=== PATIENT | female | born 1980 | race Hispanic/Latino ===

== ENCOUNTER 2018-04-16 13:44 | Inpatient (IN) | payer SELFPAY ==
[2018-04-16] MEDS ORDERED: ACETAMINOPHEN 500 MG TAB ONE (15:04)
[2018-04-16] MEDS ORDERED: NA CHLORIDE 0.9% 2,000 ML ONE (15:04)
[2018-04-16 15:28] LABS: Absolute Lymphocytes (CBC) 0.9 K/uL (0.7-4.9); Absolute Monocytes 0.8 K/uL (0.1-1.3); Basophils % 0.2 % (0-1.3); Hematocrit 37.4 % (36.0-45.0); Lymphocytes % 6.9 % (15.3-44.8); MPV 9.7 fL (7.6-11.3); Monocytes % 6.6 % (3.3-12.3); RBC Red Blood Cell Count 3.99 M/uL (3.86-4.86)
--- NOTE | 2018-04-16 15:29 | RAD REPORT ---
EXAM DESCRIPTION: CT - Stone Protocol - 04/16/2018 3:15 pm CLINICAL HISTORY: Right-sided abdominal pain, right-sided flank pain COMPARISON: None. TECHNIQUE: Axial 5 mm thick images were obtained without oral or IV contrast. The [id number] span s the entirety of the system including uppermost abdomen and lung bases. All CT scans are performed using dose optimization technique as appropriate and may include automated exposure control or mA/KV adjustment according to patient size. FINDINGS: No hydronephrosis identified. No obstructing or nonobstructing calculi seen. Very minimal fullness of the right pelvis and proximal ureter noted with mild wall thickening. Right kidney as a w hole is enlarged and edematous. There is stranding in the perinephric fat. No focal renal parenchymal process. Findings could reflect a recently passed stone. Pyelonephritis is a primary consideration. No bladder calculi seen. No bladder wall thickening or mass. No left-sided kidney or collecting syste m abnormality. Uterus and ovaries show no suspicious findings. No significant adrenal finding. Imaged portions of the liver, spleen and pancreas show no suspicious findings on non-contrast imaging . No gallbladder or biliary tree abnormality identified. No suspicious bowel findings. No appendicitis findings. No hernia, mass or bulky lymphadenopathy noted. No free air, free fluid or inflammatory stranding. No significant bony abnormality. IMPRESSION: Enlarged, edematous right kidney. There is prominence of the [place] of the right pelvis a nd proximal right ureter without hydronephrosis. No obstructing or nonobstructing calculus. Pyelonephritis would be a primary consideration. A recently passed kidney stone would be possible. No urinary bladder abnormality. Isodense masses and pyelonephritis are not excluded on stone protocol technique.
[2018-04-16] MEDS ORDERED: CEFTRIAXONE/SWI 1gm 1 GM/10 ML SYR ONE (15:30)
--- NOTE | 2018-04-16 15:44 | ER ---
Nurse's Notes [facility] Name: Lashae Payton Age: 38 yrs Sex: Female : 1980 Arrival Date: 04/16/2018 Time: 13:48 Bed 27 Private MD: Diagnosis: Sepsis due to other Gram-negative organisms;Acute tubulo-interstitial nephritis Presentation: 04/16 14:07 Presenting complaint: Patient states: fever and chills that began Monday. Pt reports aa5 lower back pain radiating to lower abdomen that began Monday. Pt reports nausea. Pt reports last normal BM was Monday, pt states "I've been having really small bowel movements since Monday". Transition of care: patient was not received from another setting of care. Onset of symptoms was March 2018. Risk Assessment: Do you want to hurt yourself or someone else? Patient reports no desire to harm self or others. Care prior to arrival: None. 14:07 Method Of Arrival: Ambulatory aa5 14:07 Acuity: ANAM 3 aa5 15:28 Initial Sepsis Screen: Does the patient meet any 2 criteria? Temp <36.0*C (96.8*F)) or la1 > 38.3*C (100.9*F). HR > 90 bpm. Yes Does the patient have a suspected source of infection? No. Patient's initial sepsis screen is negative. 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 - Social history:: Smoking status: Patient/guardian denies using tobacco. - Ebola Screening: : No symptoms or risks identified at this time. Screenin:28 Abuse screen: Denies threats or abuse. Nutritional screening: No deficits noted. la1 Tuberculosis screening: No symptoms or risk factors identified. Fall Risk None identified. Assessment: 15:27 General: Appears in no apparent distress. Behavior is calm, cooperative. Pain: la1 Complains of pain in back Pain radiates to abdomen. Neuro: Level of Consciousness is awake, alert, obeys commands, Oriented to person, place, time, situation. Cardiovascular: Heart tones S1 S2 present Capillary refill < 3 seconds Patient's skin is warm and dry. Respiratory: Airway is patent Respiratory effort is even, unlabored, Respiratory pattern is regular, symmetrical, Breath sounds are clear bilaterally. GI: No signs and/or symptoms were reported involving the gastrointestinal system. : No signs and/or symptoms were reported regarding the genitourinary system. Vital Signs: 14:10 BP 98 / 66; Pulse 113; Resp 18 S; Temp 101.0(O); Pulse Ox 100% on R/A; Pain 5/10; aa5 14:21 Weight 70.26 kg (M); la1 15:26 BP 106 / 76; Pulse 109; Resp 18; Pulse Ox 98% on R/A; la1 16:18 BP 96 / 65; Pulse 98; Resp 18; Temp 98.7(O); Pulse Ox 100% on R/A; la1 ED Course: 13:48 Patient arrived in ED. rg4 14:09 Triage completed. aa5 14:09 Arm band placed on. aa5 14:22 Johann Henry MD is Attending Physician. gs 14:32 Trevor Finley, CHRISTEN is Primary Nurse. la1 14:[address] via wheelchair. vm2 15:15 CT Stone Protocol In Process Unspecified. EDMS 15:27 No provider procedures requiring assistance completed. Inserted saline lock: 18 gauge la1 in right antecubital area, using aseptic technique. Blood collected. 15:28 Call light in reach. Side rails up X 1. la1 15:43 Kenneth Hayes DO is Hospitalizing Provider. gs 16:41 Patient admitted, IV remains in place. la1 Administered Medications: 15:25 Drug: Rocephin - (cefTRIAXone) 1 grams Route: IVPB; Infused Over: 30 mins; Site: right la1 antecubital; 15:37 Follow up: IV Status: Completed infusion la1 15:26 Drug: Acetaminophen 1000 mg Route: PO; la1 16:19 Follow up: Response: No adverse reaction; Temperature is decreased la1 15:26 Drug: NS 0.9% (30 ml/kg) 30 ml/kg Route: IV; Rate: bolus; Site: right antecubital; la1 16:19 Follow up: IV Status: Completed infusion la1 Outcome: 15:43 Decision to Hospitalize by Provider. gs 16:33 Patient left the ED. 16:41 Admitted to Med/surg accompanied by nurse, via wheelchair, room 431, with chart. la1 16:41 Condition: stable 16:41 Instructed on the need for admit. Signatures: Dispatcher [employer] EDRosy Rendon RN RN aa5 Asuncion Dawn RN RN ss Attema, Lee, RN RN la1 Garcia, Rubi Janny Miles [facility] Johann Henry MD MD
--- NOTE | 2018-04-16 15:45 | EDPHYS ---
Physician Documentation [facility] Name: Lashae Payton Age: 38 yrs Sex: Female : 1980 Arrival Date: 04/16/2018 Time: 13:48 Bed 27 Private MD: ED Physician Johann Henry HPI: 04/16 15:41 This 38 yrs old Female presents to ER via Ambulatory with complaints of Fever. gs 15:41 The patient complains of pain in the right low back. The pain radiates to the abdomen. gs Onset: The symptoms/episode began/occurred acutely, 3 day(s) ago. Modifying factors: The symptoms are alleviated by nothing. the symptoms are aggravated by nothing. Associated signs and symptoms: Pertinent positives: dysuria, fever, vomiting. Severity of pain: At its worst the pain was moderate in the emergency department the pain is unchanged. The patient has not experienced similar symptoms in the past. The patient has not recently seen a physician. 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 - Social history:: Smoking status: Patient/guardian denies using tobacco. - Ebola Screening: : No symptoms or risks identified at this time. ROS: 15:41 All other systems are negative. gs Exam: 15:41 Head/Face: Normocephalic, atraumatic. Eyes: Pupils equal round and reactive to light, gs extra-ocular motions intact. Lids and lashes normal. Conjunctiva and sclera are non-icteric and not injected. Cornea within normal limits. Periorbital areas with no swelling, redness, or edema. ENT: Nares patent. No nasal discharge, no septal abnormalities noted. Tympanic membranes are normal and external auditory canals are clear. Oropharynx with no redness, swelling, or masses, exudates, or evidence of obstruction, uvula midline. Mucous membranes moist. Neck: Trachea midline, no thyromegaly or masses palpated, and no cervical lymphadenopathy. Supple, full range of motion without nuchal rigidity, or vertebral point tenderness. No Meningismus. Chest/axilla: Normal chest wall appearance and motion. Nontender with no deformity. No lesions are appreciated. 15:41 Respiratory: Lungs have equal breath sounds bilaterally, clear to auscultation and percussion. No rales, rhonchi or wheezes noted. No increased work of breathing, no retractions or nasal flaring. Abdomen/GI: Soft, non-tender, with normal bowel sounds. No distension or tympany. No guarding or rebound. No evidence of tenderness throughout. Skin: Warm, dry with normal turgor. Normal color with no rashes, no lesions, and no evidence of cellulitis. MS/ Extremity: Pulses equal, no cyanosis. Neurovascular intact. Full, normal range of motion. Neuro: Awake and alert, GCS 15, oriented to person, place, time, and situation. Cranial nerves II-XII grossly intact. Motor strength 5/5 in all extremities. Sensory grossly intact. Cerebellar exam normal. Normal gait. 15:41 Constitutional: The patient appears alert, awake, uncomfortable. 15:41 Cardiovascular: Rate: tachycardic, Rhythm: regular, Pulses: no pulse deficits are appreciated. 15:41 Back: CVA tenderness, that is moderate, is noted on the right. Vital Signs: 14:10 BP 98 / 66; Pulse 113; Resp 18 S; Temp 101.0(O); Pulse Ox 100% on R/A; Pain 5/10; aa5 14:21 Weight 70.26 kg (M); la1 15:26 BP 106 / 76; Pulse 109; Resp 18; Pulse Ox 98% on R/A; la1 16:18 BP 96 / 65; Pulse 98; Resp 18; Temp 98.7(O); Pulse Ox 100% on R/A; la1 MDM: 14:51 Patient medically screened. gs 15:41 Differential diagnosis: nephrolithiasis, pyelonephritis, UTI, sepsis. Data reviewed: vital signs, nurses notes. Response to treatment: the patient's symptoms have markedly improved after treatment, and as a result, I will admit patient. 04/16 14:51 Order name: Basic Metabolic Panel 04/16 14:51 Order name: Blood Culture Adult (2) 04/16 14:51 Order name: CBC with Diff 04/16 14:51 Order name: Lactate 04/16 14:51 Order name: LFT's 04/16 14:51 Order name: Lipase 04/16 14:51 Order name: Procalcitonin 04/16 14:51 Order name: Urine Microscopic Only 04/16 14:51 Order name: CT Stone Protocol; Complete Time: 15:31 04/16 14:52 Order name: Basic Metabolic Panel EDME 04/16 16:00 Order name: Urine Dipstick--Ancillary (enter results) 04/16 14:51 Order name: Urine Test (obtain specimen); Complete Time: 15:43 04/16 14:51 Order name: Accucheck; Complete Time: 15:25 04/16 14:51 Order name: Cardiac monitoring; Complete Time: 15:26 04/16 14:51 Order name: IV Saline Lock - Large Bore; Complete Time: 15:26 04/16 14:51 Order name: Labs collected and sent; Complete Time: 15:26 04/16 14:51 Order name: O2 Per Protocol; Complete Time: 15:26 04/16 14:51 Order name: O2 Sat Monitoring; Complete Time: 15:26 04/16 14:51 Order name: Urine Dipstick-Ancillary (obtain specimen); Complete Time: 15:26 gs Administered Medications: 15:25 Drug: Rocephin - (cefTRIAXone) 1 grams Route: IVPB; Infused Over: 30 mins; Site: right la1 antecubital; 15:37 Follow up: IV Status: Completed infusion la1 15:26 Drug: Acetaminophen 1000 mg Route: PO; la1 16:19 Follow up: Response: No adverse reaction; Temperature is decreased la1 15:26 Drug: NS 0.9% (30 ml/kg) 30 ml/kg Route: IV; Rate: bolus; Site: right antecubital; la1 16:19 Follow up: IV Status: Completed infusion la1 Disposition: 04/16/18 15:43 Hospitalization ordered by Kenneth Hayes for Inpatient Admission. Preliminary diagnosis are Sepsis due to other Gram-negative organisms, Acute tubulo-interstitial nephritis. - Bed requested for Telemetry/MedSurg (Inpatient). - Status is Inpatient Admission. ss - Condition is Stable. - Problem is new. - Symptoms have improved. UTI on Admission? Yes Critical care time excluding procedures: 15:41 Critical care time: Bedside Care: 10 minutes, Consultation: 10 minutes, Family gs Intervention: 10 minutes. Total time: 30 minutes Signatures: Dispatcher [employer] EDRosy Rendon, RN RN aa5 Asuncion Dawn RN RN ss Trevor Finley RN RN la1 Stephanie Bai RN RN df Johann Henry MD MD gs Corrections: (The following items were deleted from the chart) 16:06 15:43 Hospitalization Ordered by Kenneth Hayes DO for Inpatient Admission. Preliminary df diagnosis is Sepsis due to other Gram-negative organisms; Acute tubulo-interstitial nephritis. Bed requested for Telemetry/MedSurg (Inpatient). Status is Inpatient Admission. Condition is Stable. Problem is new. Symptoms have improved. UTI on Admission? Yes. 16:33 16:06 04/16/2018 15:43 Hospitalization Ordered by Kenneth Hayes DO for Inpatient ss Admission. Preliminary diagnosis is Sepsis due to other Gram-negative organisms; Acute tubulo-interstitial nephritis. Bed requested for Telemetry/MedSurg (Inpatient). Status is Inpatient Admission. Condition is Stable. Problem is new. Symptoms have improved. UTI on Admission? Yes. df
[2018-04-16 15:48] LABS: Albumin 2.8 g/dL (3.4-5.0); Bilirubin Direct 0.2 mg/dL (0-0.2); Bilirubin Total 0.4 mg/dL (0.2-1.0); Potassium 3.3 mmol/L (3.5-5.1)
--- NOTE | 2018-04-16 16:05 | P.HP ---
Certification for Inpatient Patient admitted to: Inpatient With expected LOS: >2 Midnights Patient will require the following post-hospital care: None Practitioner: I am a practitioner with admitting privileges, knowledge of patient current condition, hospital course, and medical plan of care. Services: Services provided to patient in accordance with Admission requirements found in Title 42 Section 412.3 of the Code of Federal Regulations Patient History Date of Service: 04/16/18 Primary Care Provider: none Reason for admission: Right flank pain, fever and chills History of Present Illness: 38 year old female presented emergency room with right flank pain, fever, chills. Patient reports fever, chills, right flank pain since last Monday. Symptoms also reported included headaches. She has been taking Tylenol and naproxen to help with the pain. She reported at her urine was slightly abnormal. Pain to the right flank worsened. She came to the ER for further evaluation. In the ER patient evaluated. Patient with fever. White count elevated at 12.7 , hemoglobin 12.9. Platelet count of 220. Sodium 129, potassium 3.3, BUN of 10 , creatinine 0.9 with a GFR 70. Glucose 132. CT of the abdomen showed a large edematous right kidney. No hydronephrosis noted. This was suspicious for pyelonephritis with possible recently passed stone. Patient given IV fluids and started on antibiotic therapy in the emergency room. Patient admitted for further treatment. When I saw the patient ER, pain still present but improved. Patient has no prior medical problems. She reports no prior urinary recurrent infections. Home medications list reviewed: Yes - Past Medical/Surgical History Diabetic: No Past Medical History: Patient denies medical history -: Tubal ligation - Family History Family History: Reviewed- Non-Contributory - Social History Smoking Status: Never smoker Alcohol use: No CD- Drugs: No Caffeine use: No Place of Residence: Home Review of Systems General: Fever, Chills, Weakness, Malaise, As per HPI Eyes: Unremarkable ENT: Unremarkable Respiratory: Unremarkable Cardiovascular: Unremarkable Gastrointestinal: Abdominal Pain, As per HPI Genitourinary: Dysuria, As per HPI Musculoskeletal: Unremarkable Integumentary: Unremarkable Neurological: Weakness, As per HPI Lymphatics: Unremarkable Physical Examination - Physical Exam General: Alert, In no apparent distress, Oriented x3, Cooperative, Other ( Patient appears ill appearing. Fever noted. Patient warm to touch) HEENT: Atraumatic, Normocephalic, PERRLA, Mucous membr. moist/pink Neck: Supple, No Thyromegaly Respiratory: Clear to auscultation bilaterally, Normal air movement Cardiovascular: Abnormal pulses (Sinus tachycardia) Gastrointestinal: Normal bowel sounds, Soft and benign, Non-distended, No masses , No rebound, No guarding, Tenderness (Pain to the right flank) Musculoskeletal: No erythema, No tenderness, No warmth Integumentary: No erythema, No warmth, No cyanosis, Other (Patient warm to touch ) Neurological: Normal speech, Normal strength at 5/5 x4 extr, Normal tone, Normal affect Other Physical/Emotional Findings: Fever 101 - Studies Laboratory Data (last 24 hrs) 04/16/18 15:10: WBC 12.7 H, Hgb 12.9, Hct 37.4, Plt Count 220 04/16/18 15:10: Sodium 129 L, Potassium 3.3 L, BUN 10, Creatinine 0.90, Glucose 132 H, Total Bilirubin 0.4, AST 40 H, ALT 37, Alkaline Phosphatase 116, Lipase 103 Assessment and Plan - Plan Impression: Fever, right flank pain and chills secondary to right pyelonephritis with possibly recently passed stone Hyponatremia with hypokalemia likely related to dehydration Plan: Fever, right flank pain and chills secondary to right pyelonephritis with possibly recently passed stone: Patient will be admitted for treatment. Blood cultures and urine cultures obtained. Will send lab for GC chlamydia. Patient started on IV Rocephin. Will continue with aggressive IV fluid hydration. Will provide medication for pain. Will start DVT prophylaxis. Encourage incentive spirometer. Likely home once without fever for at least 24 hr and urine culture obtained. Anticipate discharge in the next 2-4 days. I will turn the service over to Dr. Valdes tomorrow. I will go over the plan of care with her. Hyponatremia with hypokalemia likely related to dehydration: Will start aggressive IV fluid. Will monitor and replace electrolytes. Discharge Plan: Home Plan to discharge in: Greater than 2 days - Advance Directives Does patient have a Living Will: No Does patient have a Durable POA for Healthcare: No - Code Status/Comfort Care Code Status Assessed: Yes (Patient full code.) Time Spent Managing Pts Care (In Minutes): 55
[2018-04-16 16:14] LABS: Urine Bacteria >50 /HPF (<20); Urine Culture Reflex Order REFLEXED
[2018-04-16 16:15] LABS: Urine Blood 2+ (NEG); Urine Glucose NEGATIVE (NEG); Urine Protein 1+ (NEG); Urine Specific Gravity <1.005 (1.005-1.030); Urine pH 6.5 (5.0-7.0)
[2018-04-16] MEDS ORDERED: TRAMADOL HCL 50 MG TAB PO PRN (16:41)
[2018-04-16] MEDS ORDERED: IBUPROFEN 100 MG/5 ML UCUP PO PRN (16:41)
[2018-04-16 16:47] LABS: Blood Morphology Comment NOT SEEN (NOT SEEN); Platelet Estimate ADEQ; Urine White Blood Cell Casts OK
[2018-04-16] MEDS: HYDROCODONE/APAP 7.5/325 MG TAB PO PRN (17:21)
[2018-04-16] MEDS: ENOXAPARIN 40 MG/0.4 ML SQ SCH (17:22)
[2018-04-16] MEDS: NA CHLORIDE 0.9% 1,000 ML IV SCH (17:23)
[2018-04-16] MEDS ORDERED: POTASSIUM CL SA 10 MEQ TAB PO ONE ×2 (18:00→23:57)
[2018-04-16 18:19] LABS: Urine Appearance CLEAR; Urine Bilirubin NEGATIVE (NEG); Urine Blood 2+ (NEG); Urine Color YELLOW; Urine Glucose NEGATIVE (NEG); Urine Protein TRACE (NEG); Urine Specific Gravity <=1.005 (1.005-1.030); Urine pH 6.5 (5.0-7.0)
[2018-04-16 18:25] LABS: Urine Microscopic Reflex ORDER UMIC
[2018-04-16] MEDS ORDERED: INFLUENZA VACCINE (for 3y+) 0.5 ML DOSE IMVAC ONE (20:00)
[2018-04-16] MEDS: FAMOTIDINE 20 MG TAB PO SCH (20:10)
[2018-04-16 20:46] LABS: Urine Bacteria 20-50 /HPF (<20); Urine Culture Reflex Order REFLEXED
[2018-04-16] MEDS: MORPHINE 2 MG/ML SYR IV PRN (23:29)
[2018-04-16] MEDS: ACETAMINOPHEN 500 MG TAB PO PRN (23:36)
[2018-04-17] MEDS: NA CHLORIDE 0.9% 1,000 ML IV SCH ×4 (00:32→21:52)
[2018-04-17] MEDS: ONDANSETRON 4 MG/2 ML VIAL IV PRN ×2 (00:38→12:29)
[2018-04-17] MEDS: HYDROCODONE/APAP 7.5/325 MG TAB PO PRN ×2 (05:03→13:18)
[2018-04-17 05:41] LABS: Absolute Lymphocytes (CBC) 1.2 K/uL (0.7-4.9); Absolute Monocytes 0.9 K/uL (0.1-1.3); Absolute Neutrophil 10.5 K/uL (1.8-8.0); Basophils % 0.3 % (0-1.3); Hematocrit 33.1 % (36.0-45.0); Lymphocytes % 9.8 % (15.3-44.8); MPV 9.4 fL (7.6-11.3); Monocytes % 7.3 % (3.3-12.3); RBC Red Blood Cell Count 3.52 M/uL (3.86-4.86)
[2018-04-17 05:54] LABS: BUN Blood Urea Nitrogen 7 mg/dL (7-18); Bicarbonate 25 mmol/L (21-32); Glucose Level 100 mg/dL (74-106); Magnesium 2.4 mg/dL (1.8-2.4); Potassium 3.8 mmol/L (3.5-5.1); Sodium Level 138 mmol/L (136-145)
[2018-04-17] MEDS ORDERED: POTASSIUM CL SA 10 MEQ TAB PO ONE (08:22)
[2018-04-17] MEDS: ACETAMINOPHEN 500 MG TAB PO PRN ×3 (08:32→18:41)
[2018-04-17] MEDS: ENOXAPARIN 40 MG/0.4 ML SQ SCH (08:33)
[2018-04-17] MEDS: FAMOTIDINE 20 MG TAB PO SCH ×2 (08:34→20:08)
[2018-04-17] MEDS ORDERED: CEFTRIAXONE/SWI 1gm 1 GM/10 ML SYR IVP SCH (09:00)
[2018-04-17] MEDS: CEFEPIME/SWI 2gm 2 GM/20 ML SYR IV SCH ×2 (10:32→16:51)
--- NOTE | 2018-04-17 17:36 | P.PN ---
Subjective Date of Service: 04/17/18 Primary Care Provider: none Chief Complaint: Right flank pain, fever and chills Review of Systems 10-point ROS is otherwise unremarkable Physical Examination - Vital Signs Temperature: 100.9 F Blood Pressure: 104/62 Pulse: 98 Respirations: 18 Pulse Ox (%): 96 - Physical Exam General: Alert, In no apparent distress HEENT: Atraumatic, PERRLA, EOMI Neck: Supple, JVD not distended Respiratory: Clear to auscultation bilaterally, Normal air movement Cardiovascular: Regular rate/rhythm, Normal S1 S2 Gastrointestinal: Normal bowel sounds, Tenderness Musculoskeletal: No tenderness Integumentary: No rashes Neurological: Normal speech, Normal tone, Normal affect Lymphatics: No axilla or inguinal lymphadenopathy Other Physical/Emotional Findings: Fever 101 - Studies Medications List Reviewed: Yes Assessment And Plan - Current Problems (Diagnosis) (1) Sepsis Current Visit: Yes Status: Acute Plan: Most likely secondary to right-sided pyelonephritis. -urine culture and blood cultures are positive for Gram negative rods at this time -was switched to IV cefepime at this time -continue monitor closely. -hemodynamically stable at this time Qualifiers: Sepsis type: sepsis due to unspecified organism Qualified Code(s): A41.9 - Sepsis, unspecified organism (2) Pyelonephritis Current Visit: Yes Status: Acute Plan: see#1 (3) Hyponatremia Onset Date: 04/17/18 Current Visit: Yes Status: Resolved - Plan Pending clinical improvement at this time Discharge Plan: Home Plan to discharge in: 48 Hours - Code Status/Comfort Care Code Status Assessed: Yes Critical Care: No
[2018-04-17] MEDS: MORPHINE 2 MG/ML SYR IV PRN (23:52)
[2018-04-18] MEDS: CEFEPIME/SWI 2gm 2 GM/20 ML SYR IV SCH ×2 (00:28→10:04)
[2018-04-18] MEDS: NA CHLORIDE 0.9% 1,000 ML IV SCH ×4 (00:29→16:32)
[2018-04-18] MEDS: ACETAMINOPHEN 500 MG TAB PO PRN ×2 (00:35→07:40)
[2018-04-18 04:36] LABS: Absolute Lymphocytes (CBC) 1.4 K/uL (0.7-4.9); Absolute Monocytes 0.6 K/uL (0.1-1.3); Basophils % 0.2 % (0-1.3); Lymphocytes % 17.6 % (15.3-44.8); MPV 8.8 fL (7.6-11.3); RBC Red Blood Cell Count 3.27 M/uL (3.86-4.86)
[2018-04-18 04:55] LABS: BUN Blood Urea Nitrogen 6 mg/dL (7-18); Bicarbonate 25 mmol/L (21-32); Glucose Level 88 mg/dL (74-106); Magnesium 2.5 mg/dL (1.8-2.4); Potassium 3.9 mmol/L (3.5-5.1); Sodium Level 136 mmol/L (136-145)
[2018-04-18] MEDS ORDERED: POTASSIUM CL SA 10 MEQ TAB PO ONE (06:00)
[2018-04-18] MEDS: ENOXAPARIN 40 MG/0.4 ML SQ SCH (10:03)
[2018-04-18] MEDS: FAMOTIDINE 20 MG TAB PO SCH ×2 (10:06→21:00)
[2018-04-18] MEDS: ONDANSETRON 4 MG/2 ML VIAL IV PRN ×2 (10:06→22:14)
--- NOTE | 2018-04-18 11:34 | RAD REPORT ---
EXAM DESCRIPTION: RAD - Abdomen 1 View (KUB) - 04/18/2018 11:24 am CLINICAL HISTORY: Abdominal pain COMPARISON: CT study April 16 FINDINGS: Bowel gas pattern is non-specific. No obstruction, free air or pneumatosis. No suspicious calcifications. Hyperdensities superimposed on the right sacral ala are believed to be within bowel. No abnormal stool content in the colon. No significant bony findings IMPRESSION: Negative KUB examination for acute or suspicious finding.
[2018-04-18] MEDS: HYDROCODONE/APAP 7.5/325 MG TAB PO PRN ×2 (13:46→19:02)
[2018-04-18] MEDS: Levofloxacin500mg IV 500 MG/100 ML BAG IV SCH (13:47)
--- NOTE | 2018-04-18 14:13 | P.PN ---
Subjective Date of Service: 04/18/18 Primary Care Provider: none Chief Complaint: Right flank pain, fever and chills Subjective: Tolerating diet, Ambulating, Improving, Doing well Review of Systems 10-point ROS is otherwise unremarkable Physical Examination - Vital Signs Temperature: 97.7 F Blood Pressure: 102/63 Pulse: 85 Respirations: 18 Pulse Ox (%): 98 - Physical Exam General: Alert, In no apparent distress HEENT: Atraumatic, PERRLA, EOMI Neck: Supple, JVD not distended Respiratory: Clear to auscultation bilaterally, Normal air movement Cardiovascular: Regular rate/rhythm, Normal S1 S2 Gastrointestinal: Normal bowel sounds, No tenderness Musculoskeletal: No tenderness Integumentary: No rashes Neurological: Normal speech, Normal tone, Normal affect Lymphatics: No axilla or inguinal lymphadenopathy Other Physical/Emotional Findings: Fever 101 - Studies Microbiology Data (last 24 hrs): 04/16/18 15:10 Clean Catch Urine Soper Count - Final BETWEEN 10,000 & 100,000 CFU/ML 04/16/18 15:10 Clean Catch Urine - Final Escherichia Coli Medications List Reviewed: Yes Assessment And Plan - Current Problems (Diagnosis) (1) Sepsis Current Visit: Yes Status: Acute Plan: Most likely secondary to right-sided pyelonephritis. -urine culture + for ecoli -Blood culture pending -was switched to IV cefepime at this time -continue monitor closely. -hemodynamically stable at this time Qualifiers: Sepsis type: sepsis due to unspecified organism Qualified Code(s): A41.9 - Sepsis, unspecified organism (2) Pyelonephritis Current Visit: Yes Status: Acute Plan: see#1 (3) Hyponatremia Onset Date: 04/17/18 Current Visit: Yes Status: Resolved - Plan Pending clinical improvement at this time Discharge Plan: Home Plan to discharge in: 48 Hours - Code Status/Comfort Care Code Status Assessed: Yes Critical Care: No
--- NOTE | 2018-04-18 15:55 | CON ---
Date of Consultation: 04/18/2018 Reason For Consultation: Nephrolithiasis; UTI, complicated; history of renal disease. History Of Present Illness: All the information has obtained with the help of shrimper. This is a 38-year-old female without any significant past medical history. No hypertension. No kidney disea se. According to her, she has never been on dialysis. The patient came to the hospital, complaining from flank pain radiating to the groin with nausea and vomiting. Primary workup showed leukocytosis , WBC 12.7 and severe UTI and fever. For that reason, we have been consulted. Abdominal CT shows py elonephritis without any hydronephrosis. No kidney stone, but suspecting of passing one. Past Medical History: Negative. Past Surgical History: Tubal ligation. Social History: Denies smoking. Denies drinking. Denies drug abuse. Lives with family. Family History: Positive for hypertension. Medications: Home medications, none. Current medications include cefepime, ibuprofen, morphine, Zof ran, and IV fluid. Review of Systems: Head and Neck: No red eye. No ear pain. GI: Has nausea and vomiting. : No polyuria. Has dysuria. Has frequency. 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 Respiratory: No shortness of breath. Cardiovascular: No chest pain. Endocrine: No polydipsia. Skin: No rash. Neuro: No neuropathy. Musculoskeletal: Has flank pain. Physical Examination: Vital Signs: Blood pressure 111/61, pulse of 91. Afebrile. Chest: Clear to auscultation. Heart: S1, S2. Regular. Abdomen: Soft, nontender. Extremities: No edema. Laboratory Data: WBC 8, H and H 10.8/31, platelet 201. Sodium 136, potassium 3.9, bicarb 25, BUN 6, creatinine 0.6, calcium 7.4, magnesium 2.5. Current Medications: The patient on its as above. Assessment And Plan: 1.Urinary tract infection secondary to Escherichia coli, sensitive to Levaquin. We will switch the patient to Levaquin to facilitate when she discharge. 2.Kidney stone, passing. We will get KUB. I have reinforced with the patient if she has any kidney disease before or being on dialysis, the patient denied. We reassured the patient. We will follow up. 3.Hypokalemia. I will supplement. Thank you, Dr. Valdes for allowing us to participate in the care of your patient. KAVYA Voice ID: [id number] Report ID: [id number]
[2018-04-19] MEDS: NA CHLORIDE 0.9% 1,000 ML IV SCH ×4 (00:17→22:24)
[2018-04-19] MEDS: MORPHINE 2 MG/ML SYR IV PRN (00:17)
[2018-04-19 04:07] LABS: Absolute Lymphocytes (CBC) 1.7 K/uL (0.7-4.9); Absolute Monocytes 0.9 K/uL (0.1-1.3); Absolute Neutrophil 6.3 K/uL (1.8-8.0); Basophils % 0.3 % (0-1.3); Eosinophils % 0.1 % (0-4.4); Hematocrit 32.6 % (36.0-45.0); Lymphocytes % 19.4 % (15.3-44.8); MPV 9.2 fL (7.6-11.3); Monocytes % 10.5 % (3.3-12.3); RBC Red Blood Cell Count 3.48 M/uL (3.86-4.86)
[2018-04-19 04:31] LABS: Albumin 2.2 g/dL (3.4-5.0); BUN Blood Urea Nitrogen 5 mg/dL (7-18); Bicarbonate 25 mmol/L (21-32); Glucose Level 91 mg/dL (74-106); Magnesium 2.2 mg/dL (1.8-2.4); Phosphorus 1.8 mg/dL (2.5-4.9); Potassium 4.4 mmol/L (3.5-5.1); Sodium Level 137 mmol/L (136-145)
[2018-04-19] MEDS: ACETAMINOPHEN 500 MG TAB PO PRN ×3 (05:14→22:24)
[2018-04-19] MEDS: HYDROCODONE/APAP 7.5/325 MG TAB PO PRN (06:28)
--- NOTE | 2018-04-19 10:00 | P.PN ---
Subjective Date of Service: 04/19/18 Primary Care Provider: none Chief Complaint: Right flank pain, fever and chills Subjective: Improving E.coli pylonephritis pansensitive BP borderline T 100.3 today will cont levaquin and consider adding gentamicin or ceftriaxone if still spiking fever Physical Examination - Vital Signs Temperature: 98 F Blood Pressure: 96/55 Pulse: 76 Respirations: 16 Pulse Ox (%): 97 - Physical Exam General: In no apparent distress, Oriented x3 HEENT: Atraumatic Neck: Supple, Without JVD or thyroid abnormality Respiratory: Clear to auscultation bilaterally, Normal air movement Cardiovascular: No edema, Regular rate/rhythm, Normal S1 S2 Gastrointestinal: Normal bowel sounds, Soft and benign Musculoskeletal: Other (Rt sided back tenderness ) Other Physical/Emotional Findings: Fever 101 - Studies Microbiology Data (last 24 hrs): 04/16/18 15:27 Blood - Blood Aerobic Blood Culture - Final Escherichia Coli 04/16/18 15:27 Blood - Blood Gram Stain - Final 04/16/18 15:27 Blood - Blood Anaerobic Blood Culture - Final Escherichia Coli 04/16/18 15:27 Blood - Blood Gram Stain - Final 04/16/18 15:10 Blood - Blood Aerobic Blood Culture - Final Escherichia Coli 04/16/18 15:10 Blood - Blood Gram Stain - Final 04/16/18 15:10 Blood - Blood Anaerobic Blood Culture - Final Escherichia Coli 04/16/18 15:10 Blood - Blood Gram Stain - Final 04/16/18 15:10 Clean Catch Urine [place] Count - Final BETWEEN 10,000 & 100,000 CFU/ML 04/16/18 15:10 Clean Catch Urine - Final Escherichia Coli Medications List Reviewed: Yes Assessment And Plan - Current Problems (Diagnosis) (1) Pyelonephritis Current Visit: Yes Status: Acute - Plan Rt pylonephritis Abd CT with perinephric starnding Bcx and Ucx: E.coli pansensitive Cont IVF cont levaquin, will consider adding gentamicin or ceftriaxone if cont to spike fever Hypokalemia resolved Hypocalcemia corrected ca WNL hypoalbumenienmia Encourage po intak e
[2018-04-19] MEDS: ENOXAPARIN 40 MG/0.4 ML SQ SCH (10:19)
[2018-04-19] MEDS: FAMOTIDINE 20 MG TAB PO SCH ×2 (10:19→22:24)
[2018-04-19] MEDS: ONDANSETRON 4 MG/2 ML VIAL IV PRN (10:28)
[2018-04-19] MEDS: Levofloxacin500mg IV 500 MG/100 ML BAG IV SCH (13:13)
--- NOTE | 2018-04-19 16:45 | P.PN ---
Subjective Date of Service: 04/19/18 Primary Care Provider: none Chief Complaint: Right flank pain, fever and chills Subjective: Tolerating diet, Ambulating, Improving, Working w/ PT, Doing well Review of Systems 10-point ROS is otherwise unremarkable Physical Examination - Vital Signs Temperature: 97.6 F Blood Pressure: 103/57 Pulse: 81 Respirations: 18 Pulse Ox (%): 98 - Physical Exam General: Alert, In no apparent distress HEENT: Atraumatic, PERRLA, EOMI Neck: Supple, JVD not distended Respiratory: Clear to auscultation bilaterally, Normal air movement Cardiovascular: Regular rate/rhythm, Normal S1 S2 Gastrointestinal: Normal bowel sounds, No tenderness Musculoskeletal: No tenderness Integumentary: No rashes Neurological: Normal speech, Normal tone, Normal affect Lymphatics: No axilla or inguinal lymphadenopathy Other Physical/Emotional Findings: Fever 101 - Studies Microbiology Data (last 24 hrs): 04/16/18 15:27 Blood - Blood Aerobic Blood Culture - Final Escherichia Coli 04/16/18 15:27 Blood - Blood Gram Stain - Final 04/16/18 15:27 Blood - Blood Anaerobic Blood Culture - Final Escherichia Coli 04/16/18 15:27 Blood - Blood Gram Stain - Final 04/16/18 15:10 Blood - Blood Aerobic Blood Culture - Final Escherichia Coli 04/16/18 15:10 Blood - Blood Gram Stain - Final 04/16/18 15:10 Blood - Blood Anaerobic Blood Culture - Final Escherichia Coli 04/16/18 15:10 Blood - Blood Gram Stain - Final Medications List Reviewed: Yes Assessment And Plan - Current Problems (Diagnosis) (1) Sepsis Current Visit: Yes Status: Acute Plan: Most likely secondary to right-sided pyelonephritis. -urine culture + for ecoli -Blood culture positive for E. coli -was switched to p.o. Levaquin at this time -continue monitor closely. -hemodynamically stable at this time -awaiting patient to remain afebrile for 24 hr for discharge home Qualifiers: Sepsis type: sepsis due to unspecified organism Qualified Code(s): A41.9 - Sepsis, unspecified organism (2) Pyelonephritis Current Visit: Yes Status: Acute Plan: see#1 (3) Hyponatremia Onset Date: 04/17/18 Current Visit: Yes Status: Resolved - Plan Pending clinical improvement at this time Discharge Plan: Home Plan to discharge in: 24 Hours - Code Status/Comfort Care Code Status Assessed: Yes Critical Care: No
[2018-04-20] MEDS: NA CHLORIDE 0.9% 1,000 ML IV SCH ×2 (00:41→08:41)
[2018-04-20 06:19] LABS: Absolute Monocytes 1.1 K/uL (0.1-1.3); Absolute Neutrophil 5.3 K/uL (1.8-8.0); Basophils % 0.3 % (0-1.3); Eosinophils % 0.6 % (0-4.4); Hematocrit 30.7 % (36.0-45.0); Lymphocytes % 23.4 % (15.3-44.8); MPV 8.4 fL (7.6-11.3); Monocytes % 12.9 % (3.3-12.3); RBC Red Blood Cell Count 3.29 M/uL (3.86-4.86)
[2018-04-20 06:47] LABS: Albumin 2.1 g/dL (3.4-5.0); BUN Blood Urea Nitrogen 4 mg/dL (7-18); Bicarbonate 24 mmol/L (21-32); Glucose Level 91 mg/dL (74-106); Magnesium 2.6 mg/dL (1.8-2.4); Phosphorus 2.4 mg/dL (2.5-4.9); Potassium 3.9 mmol/L (3.5-5.1); Sodium Level 141 mmol/L (136-145)
[2018-04-20 07:32] LABS: C.trachomatis RNA,TMA Not Detected (Not Detected)
[2018-04-20 07:33] LABS: Blood Morphology Comment NOT SEEN (NOT SEEN); Platelet Estimate ADEQ; Urine White Blood Cell Casts OK
[2018-04-20] MEDS ORDERED: levoFLOXacin 500 MG TAB PO SCH (09:00)
--- NOTE | 2018-04-20 10:21 | P.PN ---
Subjective Date of Service: 04/20/18 Primary Care Provider: none Chief Complaint: Right flank pain, fever and chills improving Rt back tenderness resolved Afebrile E.coli pylonephritis pansensitive Dc IVF , BP borderline at her base Physical Examination - Vital Signs Temperature: 99.3 F Blood Pressure: 90/55 Pulse: 75 Respirations: 18 Pulse Ox (%): 99 - Physical Exam General: In no apparent distress, Oriented x3 HEENT: Atraumatic Neck: Supple, Without JVD or thyroid abnormality Respiratory: Clear to auscultation bilaterally Cardiovascular: No edema, Regular rate/rhythm, Normal S1 S2 Other Physical/Emotional Findings: Fever 101 - Studies Microbiology Data (last 24 hrs): 04/16/18 15:27 Blood - Blood Aerobic Blood Culture - Final Escherichia Coli 04/16/18 15:27 Blood - Blood Gram Stain - Final 04/16/18 15:27 Blood - Blood Anaerobic Blood Culture - Final Escherichia Coli 04/16/18 15:27 Blood - Blood Gram Stain - Final 04/16/18 15:10 Blood - Blood Aerobic Blood Culture - Final Escherichia Coli 04/16/18 15:10 Blood - Blood Gram Stain - Final 04/16/18 15:10 Blood - Blood Anaerobic Blood Culture - Final Escherichia Coli 04/16/18 15:10 Blood - Blood Gram Stain - Final Medications List Reviewed: Yes Assessment And Plan - Current Problems (Diagnosis) (1) Pyelonephritis Current Visit: Yes Status: Acute - Plan Rt pylonephritis Abd CT with perinephric starnding Bcx and Ucx: E.coli pansensitive dc IVF Levaquin po cleared for discharge if BP is ok off IVF Hypokalemia resolved Hypocalcemia corrected ca WNL hypoalbumenienmia Encourage po intake
[2018-04-20] MEDS: FAMOTIDINE 20 MG TAB PO SCH (10:47)
[2018-04-20] MEDS: ENOXAPARIN 40 MG/0.4 ML SQ SCH (10:48)
--- NOTE | 2018-04-20 16:52 | P.DS ---
Admission Date: 04/16/18 Discharge Date: 04/20/18 Primary Care Provider: none Disposition: ROUTINE DISCHARGE Discharge Condition: GOOD Reason for Admission: Right flank pain, fever and chills - Problems (1) Sepsis Status: Acute Qualifiers: Sepsis type: sepsis due to unspecified organism Qualified Code(s): A41.9 - Sepsis, unspecified organism (2) Pyelonephritis Status: Acute (3) Hyponatremia Onset Date: 04/17/18 Status: Resolved Brief History of Present Illness: 38 year old female presented emergency room with right flank pain, fever, chills. Patient reports fever, chills, right flank pain since last Monday. Symptoms also reported included headaches. She has been taking Tylenol and naproxen to help with the pain. She reported at her urine was slightly abnormal. Pain to the right flank worsened. She came to the ER for further evaluation. In the ER patient evaluated. Patient with fever. White count elevated at 12.7 , hemoglobin 12.9. Platelet count of 220. Sodium 129, potassium 3.3, BUN of 10 , creatinine 0.9 with a GFR 70. Glucose 132. CT of the abdomen showed a large edematous right kidney. No hydronephrosis noted. This was suspicious for pyelonephritis with possible recently passed stone. Patient given IV fluids and started on antibiotic therapy in the emergency room. Patient admitted for further treatment. When I saw the patient ER, pain still present but improved. Patient has no prior medical problems. She reports no prior urinary recurrent infections. Hospital Course: Overall during the hospital stay patient remained stable Patient was initially admitted to the hospital for right-sided pyelonephritis and bacteremia. Patient had CVA tenderness on the right side. Patient was started on IV antibiotics here in the hospital. Patient was initially placed on vanc and Zosyn. Patient's blood culture and urine culture was positive for E. coli which was pansensitive. Patient then was switched over to Levaquin. Patient had marked improvement in her symptoms and thus was discharged home under stable condition. Patient was also having hyponatremia which was treated with IV fluids here in the hospital. Patient had no complications during this stay. Patient was asked to follow up with primary care provider in about 1-2 days post discharge. Vital Signs/Physical Exam: Temp Pulse Resp BP Pulse Ox 97.8 F 65 18 107/65 98 04/20/18 12:00 04/20/18 12:00 04/20/18 12:00 04/20/18 12:00 04/20/18 12:00 General: Alert, In no apparent distress HEENT: Atraumatic, PERRLA, EOMI Neck: Supple, JVD not distended Respiratory: Clear to auscultation bilaterally, Normal air movement Cardiovascular: Regular rate/rhythm, Normal S1 S2 Gastrointestinal: Normal bowel sounds, No tenderness Musculoskeletal: No tenderness Integumentary: No rashes Neurological: Normal speech, Normal tone, Normal affect Lymphatics: No axilla or inguinal lymphadenopathy Other Physical/Emotional Findings: Fever 101 Laboratory Data at Discharge: WBC 8.4 K/uL (4.3-10.9) 04/20/18 05:56 Hgb 10.6 g/dL (12.0-15.0) L 04/20/18 05:56 Hct 30.7 % (36.0-45.0) L 04/20/18 05:56 Plt Count 302 K/uL (152-406) D 04/20/18 05:56 Sodium 141 mmol/L (136-145) 04/20/18 05:56 Potassium 3.9 mmol/L (3.5-5.1) 04/20/18 05:56 BUN 4 mg/dL (7-18) L 04/20/18 05:56 Creatinine 0.40 mg/dL (0.55-1.3) L 04/20/18 05:56 Glucose 91 mg/dL (74-106) 04/20/18 05:56 Phosphorus 2.4 mg/dL (2.5-4.9) L 04/20/18 05:56 Magnesium 2.6 mg/dL (1.8-2.4) H 04/20/18 05:56 Total Bilirubin 0.4 mg/dL (0.2-1.0) 04/16/18 15:10 AST 40 U/L (15-37) H 04/16/18 15:10 ALT 37 U/L (12-78) 04/16/18 15:10 Alkaline Phosphatase 116 U/L (45-117) 04/16/18 15:10 Lipase 103 U/L (73-393) 04/16/18 15:10 Home Medications: levoFLOXacin [Levaquin*] 500 mg PO DAILY #14 tab 04/20/18 New Medications: levoFLOXacin [Levaquin*] 500 mg PO DAILY #14 tab Patient Discharge Instructions: Please F.u with PCP in 1 to 2 week post discharge. new medication. Levaquin 500mg daily Diet: Regular Activity: Ad parul
== END 2018-04-20 14:13 | disposition home or self-care (01) | DRG 872 ==
LOC: ER 13:44 → ERHOLD 15:53 → 4TH 16:28
PROVIDERS: ADMIT Family Medicine; ATTEND Family Medicine
DX: A41.51 Sepsis due to Escherichia coli [E. coli] (principal); N10 Acute pyelonephritis; E87.1 Hypo-osmolality and hyponatremia; R65.20 Severe sepsis without septic shock; E87.6 Hypokalemia; E86.0 Dehydration; N20.0 Calculus of kidney; E88.09 Other disorders of plasma-protein metabolism, not elsewhere classified
CPT/HCPCS: 36415; 74018; 74176; 76377; 80048; 80069; 80076; 81003; 81015; 82962; 83605; 83690; 83735; 84132; 84145; 85025; 87040; 87077; 87086; 87088; 87186; 87205; 87490; 87590; 96365; 96375; 99285; J0692; J0696; J1650; J2270; J2405; J7030

== ENCOUNTER 2022-04-02 00:26 | Emergency (ER) | payer SELFPAY ==
--- OUTSIDE RECORDS SUMMARY | 2022-04-02 00:29 | XMS REPORT | Continuity of Care Document ---
:1980 Author Organization [facility] t Address [address] [place] [address] [place] [address] Care Team Providers Name Role Phone Unavailable Unavailable Unavailable Problems This patient has no known problems. Allergies, Adverse Reactions, Alerts This patient has no known allergies or adverse reactions. Medications This patient has no known medications. Procedures This patient has no known procedures. Results This patient has no known results.
[2022-04-02] MEDS ORDERED: LIDOCAINE VISCOUS 2% SOLN 15 ML UDC ONE (00:39)
--- NOTE | 2022-04-02 00:57 | EDPHYS ---
Physician Documentation [facility] Name: Lashae Payton Age: 41 yrs Sex: Female : 1980 Arrival Date: 04/02/2022 Time: 00:27 Bed 10 Private MD: ED Physician Thomas Faust HPI: 04/02 00:57 This 41 yrs old Female presents to ER via Unassigned with complaints of ms3 Foreign Body In Ear. 00:57 The patient presents with a foreign body sensation, presumably from an insect. The ms3 complaints affect the left ear. Onset: The symptoms/episode began/occurred just prior to arrival. Modifying factors: The symptoms are alleviated by nothing, the symptoms are aggravated by nothing. Associated signs and symptoms: The patient has no apparent associated signs or symptoms. Severity of symptoms: At their worst the symptoms were severe in the emergency department the symptoms are unchanged. Historical: - Allergies: 01:04 No Known Allergies; tw5 ROS: 00:57 Constitutional: Negative for fever, and chills. Eyes: Negative for injury, pain, ms3 redness, and discharge. 00:57 Cardiovascular: Negative for chest pain, and palpitations. Respiratory: Negative for shortness of breath, cough, wheezing, and pleuritic chest pain, Abdomen/GI: Negative for abdominal pain, nausea, vomiting, diarrhea, and constipation, MS/Extremity: Negative for injury and deformity, Skin: Negative for injury, rash, and discoloration. 00:57 ENT: Positive for foreign body sensation. 00:57 All other systems are negative. Exam: 00:57 Constitutional: This is a well developed, well nourished patient who is awake, alert, ms3 and in no acute distress. Head/Face: Normocephalic, atraumatic. 00:57 Chest/axilla: Normal chest wall appearance and motion. Nontender with no deformity. Cardiovascular: Regular rate and rhythm with a normal S1 and S2. No gallops, murmurs, or rubs. Normal PMI, no JVD. No pulse deficits. Respiratory: Lungs have equal breath sounds bilaterally, clear to auscultation and percussion. No rales, rhonchi or wheezes noted. No increased work of breathing, no retractions or nasal flaring. Abdomen/GI: Soft, non-tender, with normal bowel sounds. No distension or tympany. No guarding or rebound. No evidence of tenderness throughout. Skin: Warm, dry with normal turgor. Normal color with no rashes, no lesions, and no evidence of cellulitis. MS/ Extremity: Pulses equal, no cyanosis. Neurovascular intact. Full, normal range of motion. 00:57 ENT: Ear canal(s): foreign body, an insect, in the left external ear canal. MDM: 00:47 Patient medically screened. ms3 00:57 Counseling: I had a detailed discussion with the patient and/or guardian regarding: the ms3 historical points, exam findings, and any diagnostic results supporting the discharge/admit diagnosis, the need for outpatient follow up, to return to the emergency department if symptoms worsen or persist or if there are any questions or concerns that arise at home. ED course: Viscous lidocaine placed in left ear canal. Left ear canal irrigated and insect removed with ear curette. Patient follow-up Dr. Valdes as needed. Patient understands agrees with plan. All questions were answered. Return precautions discussed include worsening symptoms, or other concerns. Administered Medications: 01:05 Drug: Viscous Lidocaine Liquid (4 %) 5 ml {Note: adminstered by provider at the tw5 bedside.} Route: Mucous Membrane; Disposition: 01:01 Chart complete. ms3 Disposition Summary: 04/02/22 00:57 Discharge Ordered Location: Home ms3 Condition: Stable ms3 Diagnosis - Foreign body in left ear ms3 Followup: ms3 - With: Devon Valdes DO - When: 2 - 3 days - Reason: Re-evaluation by your physician Discharge Instructions: - Discharge Summary Sheet ms3 - Ear Foreign Body, [id number] ms3 Forms: - Medication Reconciliation Form ms3 - Thank You Letter ms3 - Antibiotic Education ms3 - Prescription Opioid Use ms3 Signatures: Thomas Faust DO DO ms3 Chelo Jon tw5
--- NOTE | 2022-04-02 01:06 | ER ---
Nurse's Notes [facility] Name: Lashae Payton Age: 41 yrs Sex: Female : 1980 Arrival Date: 04/02/2022 Time: 00:27 Bed 10 Private MD: Diagnosis: Foreign body in left ear Presentation: 04/02 01:02 Chief complaint: Patient brought back by provider. Triage skipped. tw5 Historical: - Allergies: 01:04 No Known Allergies; tw5 Screenin:05 Abuse screen: Denies threats or abuse. Denies injuries from another. Nutritional tw5 screening: No deficits noted. Tuberculosis screening: No symptoms or risk factors identified. Fall Risk None identified. Assessment: 01:05 General: bug in ear. EENT: Reports bug in left ear. tw5 ED Course: 00:27 Patient arrived in ED. ja2 00:29 Thomas Faust DO is Attending Physician. ms3 00:55 Devon Valdes DO is Referral Physician. ms3 01:04 Patient placed in an exam room, Patient assess by Provider. Intervention performed. tw5 01:05 Patient has correct armband on for positive identification. tw5 01:05 bug removed by left ear. tw5 Administered Medications: 01:05 Drug: Viscous Lidocaine Liquid (4 %) 5 ml {Note: adminstered by provider at the tw5 bedside.} Route: Mucous Membrane; Medication: 01:05 VIS not applicable for this client. tw5 Outcome: 00:57 Discharge ordered by MD. ms3 01:05 Discharged to home ambulatory. tw5 01:05 Condition: improved 01:05 Discharge instructions given to patient, Instructed on discharge instructions. 01:06 Patient left the ED. tw5 Signatures: Thomas Faust DO DO ms3 Rupinder Andrea ja2 Chelo Jon tw5
== END 2022-04-02 01:06 | disposition home or self-care (01) ==
LOC: ER 00:26
PROC: 09C4XZZ Extirpation of Matter from Left External Auditory Canal, External Approach (ICD-10-PCS; principal; 2022-04-02)
DX: T16.2XXA Foreign body in left ear, initial encounter (principal)
CPT/HCPCS: 99282

== ENCOUNTER 2023-04-03 04:08 | Emergency (ER) | payer SELFPAY ==
--- OUTSIDE RECORDS SUMMARY | 2023-04-03 04:11 | XMS REPORT | Continuity of Care Document ---
:1980 Author Organization [facility] t Address [address] [place] [address] Care Team Providers Name Role Phone Unavailable Unavailable Unavailable Problems This patient has no known problems. Allergies, Adverse Reactions, Alerts This patient has no known allergies or adverse reactions. Medications This patient has no known medications. Procedures This patient has no known procedures. Results This patient has no known results.
[2023-04-03] MEDS ORDERED: MORPHINE 4 MG/ML SYR ONE (05:25)
[2023-04-03] MEDS ORDERED: ONDANSETRON 4 MG/2 ML VIAL ONE (05:25)
[2023-04-03] MEDS ORDERED: NA CHLORIDE 0.9% 1,000 ML ONE (05:25)
[2023-04-03 05:33] LABS: Absolute Lymphocytes (CBC) 1.4 K/uL (0.7-4.9); Lymphocytes % 10.3 % (15.3-44.8); MCV 94.5 fL (80-100); MPV 7.9 fL (7.6-11.3); Platelets 280 thou/uL (152-406); RBC Red Blood Cell Count 4.02 M/uL (3.86-4.86)
[2023-04-03 05:47] LABS: Specific Gravity 1.005 (1.005-1.030)
[2023-04-03 05:49] LABS: Specific Gravity 1.005 (1.005-1.030); Urine Bacteria <20 /HPF (<20); Urine Bilirubin NEGATIVE (Negative); Urine Blood 2+ (Negative); Urine Clarity Turbid (Clear); Urine Color Colorless (Yellow); Urine Glucose NEGATIVE (Negative); Urine Protein NEGATIVE (Negative); Urine Urobilinogen Normal (Normal)
[2023-04-03 05:54] LABS: Albumin 3.2 g/dL (3.4-5.0); Bilirubin Total 0.4 mg/dL (0.2-1.0); Potassium 3.7 mEq/L (3.5-5.1); Protein, Total 7.7 g/dL (6.4-8.2)
--- NOTE | 2023-04-03 08:27 | EDPHYS ---
Physician Documentation [facility] Name: Lashae Zhang Age: 42 yrs Sex: Female : 1980 Arrival Date: 04/03/2023 Time: 04:08 Bed 15 Private MD: ED Physician Thomas Faust HPI: 04/03 08:27 This 42 yrs old Female presents to ER via Ambulatory with complaints of Fever, ms3 Abdominal Pain. 08:27 42-year-old female with no past medical history presents to the emergency department ms3 for right lower quadrant abdominal pain that began yesterday. Patient states pain is 10/10. Patient denies nausea, vomiting. Patient states she took ibuprofen and Tylenol prior to arrival.. Historical: - Allergies: 04:33 No Known Allergies; kl - Home Meds: 04:33 None [Active]; kl - PMHx: 04:33 None; kl - PSHx: 04:33 None; kl - Immunization history:: Adult Immunizations unknown. - Social history:: Smoking status: Patient denies any tobacco usage or history of. Patient/guardian denies using alcohol, street drugs. ROS: 08:40 Neck: Negative for injury, pain, and swelling, Cardiovascular: Negative for chest pain, ms3 and palpitations. Respiratory: Negative for shortness of breath, cough, wheezing, and pleuritic chest pain, 08:40 Skin: Negative for injury, rash, and discoloration, 08:40 Constitutional: Positive for fever, 08:40 Abdomen/GI: Positive for abdominal pain, 08:40 All other systems are negative, Exam: 08:40 Constitutional: This is a well developed, well nourished patient who is awake, alert, ms3 and in no acute distress. Head/Face: Normocephalic, atraumatic. Neck: Trachea midline, no cervical lymphadenopathy. Supple, full range of motion without nuchal rigidity, or vertebral point tenderness. No Meningismus. Chest/axilla: Normal chest wall appearance and motion. Nontender with no deformity. Cardiovascular: Regular rate and rhythm with a normal S1 and S2. No gallops, murmurs, or rubs. Normal PMI, no JVD. No pulse deficits. Respiratory: Lungs have equal breath sounds bilaterally, clear to auscultation and percussion. No rales, rhonchi or wheezes noted. No increased work of breathing, no retractions or nasal flaring. 08:40 Skin: Warm, dry with normal turgor. Normal color with no rashes, no lesions, and no evidence of cellulitis. 08:40 Abdomen/GI: Inspection: abdomen appears normal, Bowel sounds: normal, Palpation: moderate abdominal tenderness, in the right lower quadrant, Vital Signs: 04:32 BP 113 / 79; Pulse 104; Resp 17 S; Temp 98.3(O); Pulse Ox 100% on R/A; Weight 63.5 kg kl (R); Height 5 ft. 3 in. (R); 05:45 BP 104 / 70; Pulse 81; Resp 16; Pulse Ox 100% on R/A; nw1 06:45 BP 101 / 63; Pulse 82; Resp 16; Pulse Ox 100% ; nw1 07:40 BP 91 / 58; Pulse 80; Resp 18; Pulse Ox 100% on R/A; ld1 08:25 BP 101 / 74; Pulse 89; Resp 18; Pulse Ox 100% ; ld1 04:32 Body Mass Index 24.80 (63.50 kg, 160.02 cm) kl [place] Coma Score: 06:00 Eye Response: spontaneous(4). Motor Response: obeys commands(6). Verbal Response: nw1 oriented(5). Total: 15. MDM: 04:54 Patient medically screened. ms3 08:40 Differential diagnosis: Appendicitis vs Pyelonephritis vs Flank pain vs Abdominal pain ms3 vs UTI. Data reviewed: vital signs, nurses notes, lab test result(s), radiologic studies, and as a result, I will discharge patient. I considered the following discharge prescriptions or medication management in the emergency department Medications were administered in the Emergency Department. See MAR. Counseling: I had a detailed discussion with the patient and/or guardian regarding the historical points, exam findings, and any diagnostic results supporting the discharge/admit diagnosis, lab results, radiology results, the need for outpatient follow up, to return to the emergency department if symptoms worsen or persist or if there are any questions or concerns that arise at home. Special discussion: Based on the patient's Hx, exam, and Dx evaluation, there is no indication for emergent surgery or inpatient Tx. It is understood by the patient/guardian that if the Sx's persist or worsen they need to return immediately for re-evaluation. ED course: Discussed labs, CT findings with patient. Patient to follow-up with Dr. Bello 2 to 3 days for right hydronephrosis. All questions were answered. Return precautions discussed include worsening symptoms, or any other concerns. On reevaluation patient's pain improved, patient is alert and oriented x 4, no apparent distress, nontoxic-appearing, speaking full sentences. 04/03 04:54 Order name: CBC with Diff; Complete Time: 06:27 ms3 04/03 04:54 Order name: CMP; Complete Time: 06:27 ms3 04/03 04:54 Order name: Test, Urine; Complete Time: 06:27 ms3 04/03 04:54 Order name: Urinalysis w/ reflexes; Complete Time: 06:27 ms3 04/03 04:54 Order name: CT Abd/Pelvis - IV Contrast Only ms3 04/03 04:54 Order name: IV Saline Lock; Complete Time: 05:08 ms3 04/03 04:54 Order name: Labs collected and sent; Complete Time: 05:08 ms3 Administered Medications: 05:17 Drug: NS 0.9% IV 1000 ml IV at 1 bolus Per protocol; 1000 mL bolus Route: IV; Rate: 1 lg3 bolus; Site: right antecubital; 05:17 Drug: Ondansetron IVP 4 mg IVP once; over 2 minutes Route: IVP; Site: right antecubital;lg3 05:17 Drug: morphine IVP or IV 4 mg IVP once over 4 mins Route: IVP; Infused Over: 4 mins; lg3 Site: right antecubital; Disposition Summary: 04/03/23 08:26 Discharge Ordered Notes: Location: Home ms3 Condition: Stable ms3 Diagnosis - Lower abdominal pain, unspecified ms3 - Unspecified hydronephrosis ms3 Followup: ms3 - With: Nico Chaudhry MD - When: 1 - 2 days - Reason: Recheck today's complaints Discharge Instructions: - Discharge Summary Sheet ms3 - Abdominal Pain, Adult ms3 - Hydronephrosis ms3 Forms: - Medication Reconciliation Form ms3 - Thank You Letter ms3 - Antibiotic Education ms3 - Prescription Opioid Use ms3 - Patient Portal Instructions ms3 - Leadership Thank You Letter ms3 Signatures: Dispatcher [employer] EDMS Germán, Angela, RN RN kl Mary Grace Whitt RN RN lg3 Thomas Faust DO DO ms3
--- NOTE | 2023-04-03 08:27 | ER ---
Nurse's Notes [facility] Name: Lashae Zhang Age: 42 yrs Sex: Female : 1980 Arrival Date: 04/03/2023 Time: 04:08 Bed 15 Private MD: Diagnosis: Lower abdominal pain, unspecified;Unspecified hydronephrosis Presentation: 04/03 04:32 Chief complaint: Patient states: right lower abdominal pain radiating to right flank kl beginning yesterday. pain 02/07. denies N/V/D. Coronavirus screen: Client denies travel out of the [place] in the last 14 days. At this time, the client does not indicate any symptoms associated with coronavirus-19. Ebola Screen: No symptoms or risks identified at this time. Initial Sepsis Screen: Does the patient meet any 2 criteria? No. Patient's initial sepsis screen is negative. Does the patient have a suspected source of infection? No. Patient's initial sepsis screen is negative. Risk Assessment: Do you want to hurt yourself or someone else? Patient reports no desire to harm self or others. Onset of symptoms was April 02, 2023. 04:32 Method Of Arrival: Ambulatory kl 04:32 Acuity: ANAM 3 kl Triage Assessment: 04:33 General: Appears in no apparent distress. uncomfortable, Behavior is calm, cooperative. kl Pain: Complains of pain in right lower quadrant Pain radiates to right flank. EENT: No deficits noted. No signs and/or symptoms were reported regarding the EENT system. Neuro: No deficits noted. Zee Agitation-Sedation Scale (RASS): 0 - Alert and Calm Level of Consciousness is awake, alert, obeys commands, Oriented to person, place, time, situation. Cardiovascular: No deficits noted. Denies chest pain, shortness of breath, Capillary refill < 3 seconds Clubbing of nail beds is absent JVD is absent Patient's skin is warm and dry. Respiratory: No deficits noted. Airway is patent Respiratory effort is even, unlabored, Respiratory pattern is regular, symmetrical. GI: Abdomen is round non-distended, Reports lower abdominal pain, cramping. : No deficits noted. No signs and/or symptoms were reported regarding the genitourinary system. Derm: No deficits noted. No signs and/or symptoms reported regarding the dermatologic system. Skin is intact, is healthy with good turgor, Skin is dry, Skin is normal, Skin temperature is warm. Musculoskeletal: No deficits noted. No signs and/or symptoms reported regarding the musculoskeletal system. Circulation, motion, and sensation intact. Range of motion: intact in all extremities. Historical: - Allergies: 04:33 No Known Allergies; kl - Home Meds: 04:33 None [Active]; kl - PMHx: 04:33 None; kl - PSHx: 04:33 None; kl - Immunization history:: Adult Immunizations unknown. - Social history:: Smoking status: Patient denies any tobacco usage or history of. Patient/guardian denies using alcohol, street drugs. Screenin:00 [facility] ED Fall Risk Assessment (Adult) History of falling in the last 3 months, nw1 including since admission No falls in past 3 months (0 pts) Confusion or Disorientation No (0 pts) Intoxicated or Sedated No (0 pts) Impaired Gait No (0 pts) Mobility Assist Device Used No (0 pt) Altered Elimination No (0 pt) Score/Fall Risk Level 0 - 2 = Low Risk Oriented to surroundings, Educated pt \T\ family on fall prevention, incl call for assistance when getting out of bed, Assessed \T\ reinforced patient's understanding of fall precautions, Provided non-skid footwear, Used ambulatory aids as needed (educated on \T\ assisted with). Abuse screen: Denies threats or abuse. Denies injuries from another. Nutritional screening: No deficits noted. Tuberculosis screening: No symptoms or risk factors identified. Assessment: 06:00 Reassessment: PT STATES RUQ AND RLQ ABD PAIN THAT RADIATES TO RIGHT BACK X 1 DAY. P T nw1 STATES CHILLS BUT DID NOT CHECK TEMPERATURE. PT REPORTS TAKING MOTRIN AND ACETAMINOPHEN FOR FEVER. 06:00 General: Appears uncomfortable, Behavior is calm, cooperative, appropriate for age. nw1 Cardiovascular: No deficits noted. Denies chest pain, diaphoresis, fatigue, lightheadedness, nausea, palpitations, shortness of breath, syncope, vomiting. GI: Bowel sounds present X 4 quads. Abdomen is tender to palpation in right upper quadrant and right lower quadrant. : No deficits noted. No signs and/or symptoms were reported regarding the genitourinary system. Derm: No deficits noted. No signs and/or symptoms reported regarding the dermatologic system. Musculoskeletal: No deficits noted. No signs and/or symptoms reported regarding the musculoskeletal system. Vital Signs: 04:32 BP 113 / 79; Pulse 104; Resp 17 S; Temp 98.3(O); Pulse Ox 100% on R/A; Weight 63.5 kg kl (R); Height 5 ft. 3 in. (R); 05:45 BP 104 / 70; Pulse 81; Resp 16; Pulse Ox 100% on R/A; nw1 06:45 BP 101 / 63; Pulse 82; Resp 16; Pulse Ox 100% ; nw1 07:40 BP 91 / 58; Pulse 80; Resp 18; Pulse Ox 100% on R/A; ld1 08:25 BP 101 / 74; Pulse 89; Resp 18; Pulse Ox 100% ; ld1 04:32 Body Mass Index 24.80 (63.50 kg, 160.02 cm) kl Alirio Coma Score: 06:00 Eye Response: spontaneous(4). Motor Response: obeys commands(6). Verbal Response: nw1 oriented(5). Total: 15. ED Course: 04:10 Patient arrived in ED. jj6 04:21 Thomas Faust DO is Attending Physician. ms3 04:33 Triage completed. kl 04:33 Arm band placed on left wrist. kl 05:08 Inserted saline lock: 22 gauge in right antecubital area, using aseptic technique. lg3 Blood collected. 05:08 CBC with Diff Sent. lg3 05:09 CMP Sent. lg3 05:17 Test, Urine Sent. lg3 05:17 Urinalysis w/ reflexes Sent. lg3 05:30 Colleen Lutz, RN is Primary Nurse. nw1 06:00 Patient has correct armband on for positive identification. Placed in gown. Bed in low nw1 position. Call light in reach. Side rails up X2. Provided Education on: POC. Client placed on continuous cardiac and pulse oximetry monitoring. NIBP monitoring applied. feed research aide on. Pulse ox on. NIBP on. 06:22 CT Abd/Pelvis - IV Contrast Only In Process Unspecified. EDMS 08:25 Nico Chaudhry MD is Referral Physician. ms3 08:49 No provider procedures requiring assistance completed. IV discontinued, intact, ld1 bleeding controlled, No redness/swelling at site. Administered Medications: 05:17 Drug: NS 0.9% IV 1000 ml IV at 1 bolus Per protocol; 1000 mL bolus Route: IV; Rate: 1 lg3 bolus; Site: right antecubital; 05:17 Drug: Ondansetron IVP 4 mg IVP once; over 2 minutes Route: IVP; Site: right antecubital;lg3 05:17 Drug: morphine IVP or IV 4 mg IVP once over 4 mins Route: IVP; Infused Over: 4 mins; lg3 Site: right antecubital; Medication: 06:00 VIS not applicable for this client. nw1 Outcome: 08:26 Discharge ordered by . ms3 08:49 Discharged to home ambulatory, ld1 08:49 Condition: stable 08:49 Discharge instructions given to patient, Instructed on discharge instructions, follow up and referral plans. medication usage, Demonstrated understanding of instructions, follow-up care, medications, 08:50 Patient left the ED. ld1 Signatures: Dispatcher [employer] EDMS Angela Dunlap RN RN kl Gibson, Lacie, RN RN lg3 Thomas Faust, DO ms3 Kristen Faust RN RN ld1 Eleanor Tysonj6 Colleen Lutz RN RN nw1 Corrections: (The following items were deleted from the chart) 08:26 07:40 BP 91 / 58; Pulse 80bpm; Resp 10bpm; Pulse Ox 100% RA; ld1 ld1
[2023-04-03 10:21] VITALS: BP 101/74; O2SAT 100
--- NOTE | 2023-04-03 14:03 | RAD REPORT ---
EXAM DESCRIPTION: CT - Abdomen Pelvis W Contrast - 04/03/2023 7:33 am CLINICAL HISTORY: ABD PAIN COMPARISON: None. TECHNIQUE: CT ABDOMEN PELVIS WITH IV CONTRAST on 04/03/2023 4:54 AM STORE STOCK ASSOCIATE This exam was performed according to our departmental dose-optimization program, which includes autom ated exposure control, adjustment of the mA and/or kV according to patient size and/or use of iterati ve reconstruction technique. FINDINGS: Lower lungs are clear. Abdomen: There is a small cyst in the midportion of the right lobe of the liver. There is no biliary dilatation. Gallbladder is normal in appearance. The pancreas and spleen are normal in appearance. Ad renal glands and left kidney are normal. There is a minimal focus of decreased attenuation in the med ial upper pole of the right kidney. There is mild right hydronephrosis. Abdominal aorta is normal in course and caliber without aneurysm. There is no free air. There is no r etroperitoneal adenopathy. Pelvis: There is no bowel obstruction. Urinary bladder is unremarkable. There is no free fluid. Uteru s is normal in size. Appendix is normal. Skeleton: There are no acute osseous findings. No suspicious bony lesions. IMPRESSION: Mild right hydronephrosis with no clear obstructing lesion. This could be secondary to r ecently passed calculus. Pyelonephritis within the right kidney is a possibility also. Electronically signed by: Marlo Alvarez MD 04/03/2023 06:56 AM STORE STOCK ASSOCIATE Due to temporary technical issues with the PACS/Fluency reporting system, reports are being signed by the in house radiologist without review as a courtesy to ensure prompt reporting. The interpreting r adiologist is fully responsible for the content of the report.
== END 2023-04-03 08:50 | disposition home or self-care (01) ==
LOC: ER 04:08
DX: N13.30 Unspecified hydronephrosis (principal)
CPT/HCPCS: 36415; 74177; 80053; 81001; 81025; 85025; 96374; 96375; 99285; J2405; J7030; Q9967

== ENCOUNTER 2023-07-23 14:12 | Inpatient (IN) | payer SELFPAY ==
--- OUTSIDE RECORDS SUMMARY | 2023-07-23 14:15 | XMS REPORT | Continuity of Care Document ---
Author Name Unknown Address [address] [place] [address] [employer] Address [address] [place] [id number] Care Team Providers Care Supervisor Public Message Service Name Role Phone Unavailable Unavailable Unavailable
[2023-07-23 15:33] LABS: Specific Gravity 1.028 (1.005-1.030)
[2023-07-23] MEDS ORDERED: KETOROLAC 30 MG/ML INJ ONE (15:36)
[2023-07-23] MEDS ORDERED: NA CHLORIDE 0.9% 1,000 ML ONE ×3 (15:36→20:17)
[2023-07-23] MEDS ORDERED: ONDANSETRON 4 MG/2 ML VIAL ONE ×2 (15:36→20:16)
[2023-07-23 15:39] LABS: Absolute Lymphocytes (CBC) 0.6 K/uL (0.7-4.9); Absolute Monocytes 0.9 K/uL (0.1-1.3); Absolute Neutrophil 10.9 K/uL (1.8-8.0); Basophils % 0.3 % (0-1.3); Hematocrit 36.4 % (36.0-45.0); Hemoglobin 12.2 g/dL (12.0-15.0); Lymphocytes % 5.1 % (15.3-44.8); MCH 31.4 pg (27.0-35.0); MCHC 33.6 g/dL (32.0-36.0); MCV 93.5 fL (80-100); MPV 8.7 fL (7.6-11.3); Monocytes % 7.3 % (3.3-12.3); Neutrophils % 87.3 % (41.7-73.7); Platelets 258 thou/uL (152-406); Red Cell Distribution Width 13.9 % (12.1-15.2)
[2023-07-23 15:40] LABS: Specific Gravity 1.028 (1.005-1.030); Sqamous Epithelial <5 /HPF (None Seen); Urine Bacteria <20 /HPF (<20); Urine Bilirubin NEGATIVE (Negative); Urine Blood 3+ (OVER) (Negative); Urine Clarity Extremely Turbid (Clear); Urine Color Yellow (Yellow); Urine Culture Reflex Order REFLEXED; Urine Glucose NEGATIVE (Negative); Urine Ketones TRACE (Negative); Urine Microscopic Reflex YN ORDER UMIC; Urine Mucus 2+ /HPF (None Seen); Urine Nitrite NEGATIVE (Negative); Urine Protein 1+ (Negative); Urine RBC >50 /HPF (None Seen); Urine Urobilinogen Normal (Normal)
[2023-07-23 15:55] LABS: Albumin 3.3 g/dL (3.4-5.0); Albumin/Globulin Ratio 0.8 (1.1-1.8); Anion Gap 6.1 mEq/L (5.0-15.0); Bilirubin Total 0.3 mg/dL (0.2-1.0); Globulin 4.3 g/dL (2.3-3.5); Potassium 3.1 mEq/L (3.5-5.1); Protein, Total 7.6 g/dL (6.4-8.2)
[2023-07-23] MEDS ORDERED: CEFTRIAXONE 1000 MG/VIAL ONE (17:56)
[2023-07-23 18:23] LABS: PT Prothrombin Time 12.8 SECONDS (9.5-12.5); PTT, Activated Partial Thromb 33.4 SECONDS (24.3-36.9); Protime INR 1.17
[2023-07-23] MEDS ORDERED: POTASSIUM 25 MEQ EFFERV TAB ONE (18:23)
--- NOTE | 2023-07-23 18:37 | ER ---
Nurse's Notes [facility] Name: Lashae Zhang Age: 43 yrs Sex: Female : 1980 Arrival Date: 07/23/2023 Time: 14:12 Bed 18 Private MD: Diagnosis: Pyelonephritis acute;Sepsis, unspecified organism;Hypokalemia Presentation: 07/22 14:55 Chief complaint: Patient states: Pt c/o right flank pain that radiates into right lower tl4 abdomen since Monday. Pt also c/o decreased urine output. Pt states this feels like previous kidney stone events. Coronavirus screen: At this time, the client does not indicate any symptoms associated with coronavirus-19. Ebola Screen: No symptoms or risks identified at this time. Initial Sepsis Screen: Does the patient meet any 2 criteria? No. Patient's initial sepsis screen is negative. Does the patient have a suspected source of infection? No. Patient's initial sepsis screen is negative. Risk Assessment: Do you want to hurt yourself or someone else? Patient reports no desire to harm self or others. Onset of symptoms was July 19, 2023. 14:55 Method Of Arrival: Ambulatory tl4 14:55 Acuity: ANAM 3 tl4 Triage Assessment: 15:00 General: Appears uncomfortable, Behavior is calm, cooperative. Pain: Complains of pain tl4 in back and abdomen. EENT: No deficits noted. No signs and/or symptoms were reported regarding the EENT system. Neuro: Level of Consciousness is awake, alert, obeys commands, Oriented to person, place, time, situation, Gait is steady, Speech is normal, Facial symmetry appears normal. Cardiovascular: Capillary refill < 3 seconds Patient's skin is warm and dry. Respiratory: Airway is patent Respiratory effort is even, unlabored. GI: Reports lower abdominal pain. : Reports decreased urine output. Derm: No deficits noted. No signs and/or symptoms reported regarding the dermatologic system. Musculoskeletal: No deficits noted. No signs and/or symptoms reported regarding the musculoskeletal system. Historical: - Allergies: 14:58 No Known Allergies; tl4 - Home Meds: 14:58 None [Active]; tl4 - PMHx: 14:58 Kidney stone; tl4 - Immunization history:: Adult Immunizations unknown. - Social history:: Smoking status: Patient denies any tobacco usage or history of. Screenin:03 [facility] ED Fall Risk Assessment (Adult) History of falling in the last 3 months, cp4 including since admission No falls in past 3 months (0 pts) Confusion or Disorientation No (0 pts) Intoxicated or Sedated No (0 pts) Impaired Gait No (0 pts) Mobility Assist Device Used No (0 pt) Altered Elimination No (0 pt) Score/Fall Risk Level 0 - 2 = Low Risk Oriented to surroundings, Maintained a safe environment, Assessed \T\ reinforced patient's understanding of fall precautions, Hourly rounding (assess needs \T\ fall precautionary measures) done. Abuse screen: Denies threats or abuse. Nutritional screening: No deficits noted. Tuberculosis screening: No symptoms or risk factors identified. Assessment: 17:03 General: Appears uncomfortable, Behavior is calm, cooperative, appropriate for age. cp4 Pain: Complains of pain in right lower quadrant. GI: Bowel sounds present X 4 quads. Abdomen is tender to palpation in right lower quadrant. 19:30 Reassessment: hospitalist at bedside. tm6 21:14 Reassessment: Patient and/or family updated on plan of care and expected duration. Pain tm6 level reassessed. Patient is alert, oriented x 3, equal unlabored respirations, skin warm/dry/pink. Vital Signs: 14:55 BP 104 / 59; Pulse 119; Resp 18; Temp 98.4; Pulse Ox 98% on R/A; Weight 66.5 kg (M); tl4 Pain 10/10; 16:00 BP 99 / 60; Pulse 97; Resp 18; Pulse Ox 98% ; cp4 17:00 BP 109 / 63; Pulse 106; Resp 18; Pulse Ox 98% ; cp4 18:00 BP 105 / 62; Pulse 108; Resp 18; Pulse Ox 99% ; cp4 19:30 Pulse 136; Pulse Ox 100% on R/A; tm6 19:50 BP 132 / 62; Pulse 126; Resp 24; Temp 98.8(O); Pulse Ox 100% ; Pain 0/10; tm6 14:55 Pain Scale: Adult tl4 19:50 Pain Scale: Adult tm6 ED Course: 14:16 Patient arrived in ED. ra3 14:53 Ericka Stock FNP-C is PHCP. kb 14:53 Tomas العراقي MD is Attending Physician. kb 14:57 Triage completed. tl4 14:58 Arm band placed on right wrist. tl4 15:15 Nery Ley is Primary Nurse. cp4 16:55 CT Abd/Pelvis - IV Contrast Only In Process Unspecified. EDMS 17:03 Bed in low position. Call light in reach. Side rails up X 1. cp4 17:03 No provider procedures requiring assistance completed. Inserted saline lock: 20 gauge cp4 antecubital area, using aseptic technique. Blood collected. 17:52 Blood Culture Adult (2) Sent. cp4 17:52 Lactate w/ 2H reflex if indic. Sent. cp4 17:52 Protime (+inr) Sent. cp4 17:52 Ptt, Activated Sent. cp4 18:01 Inserted saline lock: 20 gauge in left antecubital area, using aseptic technique. Blood cp4 collected. 18:05 PHCP role handed off by Ericka Stock FNP-C cp 18:05 Tomas Nugent PA is PHCP. cp 18:36 Ray Mendiola is Hospitalizing Provider. cp 19:00 Client placed on continuous cardiac and pulse oximetry monitoring. NIBP monitoring tm6 applied. adjuster piano action on. Pulse ox on. NIBP on. Door closed. Noise minimized. Warm blanket given. 19:47 Ahmet Diaz, RN is Primary Nurse. tm6 21:14 Provided Education on: need for admit. tm6 21:14 Patient admitted, IV remains in place. tm6 Administered Medications: 15:48 Drug: NS 0.9% IV 1000 ml IV at 1 bolus Per protocol; 1000 mL bolus Route: IV; Rate: 1 cp4 bolus; Site: right antecubital; 18:31 Follow up: Response: No adverse reaction; IV Status: Completed infusion cp4 21:15 Follow up: IV Status: Completed infusion; IV Intake: 1000ml tm6 15:48 Drug: Ondansetron IVP 4 mg IVP once; over 2 minutes Route: IVP; Site: right antecubital;cp4 18:31 Follow up: Response: No adverse reaction cp4 15:49 Drug: TORadol - Ketorolac IVP 15 mg IVP once Route: IVP; Site: right antecubital; cp4 18:31 Follow up: Response: No adverse reaction cp4 18:01 Drug: Rocephin IV 1 grams IV at calculated rate once; Given slow IV push per pharmacy cp4 instructions Route: IV; Rate: calculated rate; Site: right antecubital; 18:30 Follow up: Response: No adverse reaction; IV Status: Completed infusion cp4 18:21 Drug: NS 0.9% IV (30 ml/kg) 30 ml/kg IV at bolus once; Sepsis Protocol Route: IV; Rate: cp4 bolus; Site: right antecubital; 18:26 Drug: Potassium PO Effervescent Tablet 50 mEq PO once; dissolve in 4 ounces of water or cp4 juice Route: PO; Medication: 17:03 VIS not applicable for this client. cp4 Intake: 21:15 IV: 1000ml; Total: 1000ml. tm6 Outcome: 18:36 Decision to Hospitalize by Provider. cp 21:14 Admitted to Med/surg accompanied by tech, via stretcher, room 404, with chart, Report tm6 called to faxed to Donny 21:14 Condition: stable 21:14 Instructed on the need for admit, Demonstrated understanding of instructions, 21:15 Patient left the ED. tm6 Signatures: Dispatcher [employer] EDMS Ericka Stock, PATENT CLERK-C PATENT CLERK-Ckb Tomas Nugent PA PA cp Potter, Christina cp4 Ahmet Diaz RN RN tm6 Dilip Connor RN RN tl4 Alis Sanders ra3 Corrections: (The following items were deleted from the chart) 15:00 14:55 BP 104 / 59; Pulse 119bpm; Resp 18bpm; Pulse Ox 98% RA; Temp 98.4F; Pain 10/10, tl4 Adult; tl4
--- NOTE | 2023-07-23 18:37 | EDPHYS ---
Physician Documentation [facility] Name: Lashae Zhang Age: 43 yrs Sex: Female : 1980 Arrival Date: 07/23/2023 Time: 14:12 Bed 18 Private MD: JOSE Physician Tomas العراقي HPI: 07/22 17:07 This 43 yrs old Female presents to ER via Ambulatory with complaints of kb Abdominal Pain, Fever, Headache. 17:07 Pt is a 43 year old female who presents for right abd pain, right flank pain, urinating kb small amounts and fever that started 3 days ago. Denies vomiting or diarrhea. . Historical: - Allergies: 14:58 No Known Allergies; tl4 - Home Meds: 14:58 None [Active]; tl4 - PMHx: 14:58 Kidney stone; tl4 - Immunization history:: Adult Immunizations unknown. - Social history:: Smoking status: Patient denies any tobacco usage or history of. ROS: 17:06 Constitutional: As per HPI kb Exam: 17:06 Constitutional: This is a well developed, well nourished patient who is awake, alert, kb and in no acute distress. Head/Face: Normocephalic, atraumatic. ENT: Moist Mucous membranes Cardiovascular: Regular rate Respiratory: Respirations even and unlabored. No increased work of breathing. Talking in full sentences Skin: Warm, dry with normal turgor. Normal color. MS/ Extremity: Pulses equal, no cyanosis. Neurovascular intact. Full, normal range of motion. Neuro: Awake and alert, GCS 15, oriented to person, place, time, and situation. Moves all extremities. Normal gait. 17:06 Abdomen/GI: Inspection: abdomen appears normal, Bowel sounds: normal, Palpation: soft, in all quadrants, mild abdominal tenderness, in the right upper quadrant, moderate abdominal tenderness, in the right lower quadrant, Vital Signs: 14:55 BP 104 / 59; Pulse 119; Resp 18; Temp 98.4; Pulse Ox 98% on R/A; Weight 66.5 kg (M); tl4 Pain 10/10; 16:00 BP 99 / 60; Pulse 97; Resp 18; Pulse Ox 98% ; cp4 17:00 BP 109 / 63; Pulse 106; Resp 18; Pulse Ox 98% ; cp4 18:00 BP 105 / 62; Pulse 108; Resp 18; Pulse Ox 99% ; cp4 19:30 Pulse 136; Pulse Ox 100% on R/A; tm6 19:50 BP 132 / 62; Pulse 126; Resp 24; Temp 98.8(O); Pulse Ox 100% ; Pain 0/10; tm6 14:55 Pain Scale: Adult tl4 19:50 Pain Scale: Adult tm6 MDM: 14:53 Patient medically screened. kb 17:06 Differential diagnosis: appendicitis, non-specific abd pain, pancreatitis, kb Pyelonephritis, Ureterolithiasis, urinary tract infection. Data reviewed: vital signs, nurses notes. Historians other than the Patient: Family Member: son. 17:33 Consideration of Admission/Observation Patient was admitted/placed on observation. kb Escalation of care including admission/observation considered. Counseling: I had a detailed discussion with the patient and/or guardian regarding the historical points, exam findings, and any diagnostic results supporting the discharge/admit diagnosis, lab results, radiology results, the need for further work-up and treatment in the hospital. 17:56 Transition of care: After a detail discussion of the patient's case, care is kb transferred to Tomas MONTERROSO. 18:40 Data reviewed: lab test result(s), and as a result, I will admit patient. 07/22 15:07 Order name: CBC with Diff 07/22 18:05 Interpretation: Normal except: WBC 12.50; PARVEEN% 87.3; LYM% 5.1; NEUT A 10.9; LYMA 0.6. 07/22 15:07 Order name: CMP; Complete Time: 16:00 07/22 18:05 Interpretation: Normal except: NA 133; K 3.1; GLUC 158; CA 8.3; ALB 3.3; GLOB 4.3; A/G cp 0.8. 07/22 15:07 Order name: Test, Urine; Complete Time: 15:43 07/22 15:07 Order name: Urinalysis w/ reflexes; Complete Time: 16:00 07/22 15:59 Order name: Urine Culture EDMS 07/22 17:32 Order name: Blood Culture Adult (2) 07/22 17:32 Order name: Lactate w/ 2H reflex if indic.; Complete Time: 18:36 07/22 17:32 Order name: Protime (+inr); Complete Time: 18:25 kb 07/22 17:32 Order name: Ptt, Activated; Complete Time: 18:25 kb 07/22 15:19 Order name: CT Abd/Pelvis - IV Contrast Only kb 07/22 17:32 Order name: EKG; Complete Time: 17:33 kb 07/22 15:07 Order name: IV Saline Lock; Complete Time: 15:49 kb 07/22 15:07 Order name: Labs collected and sent; Complete Time: 15:49 kb 07/22 17:32 Order name: Accucheck; Complete Time: 17:33 kb 07/22 17:32 Order name: Cardiac monitoring; Complete Time: 17:33 kb 07/22 17:32 Order name: EKG - Nurse/Tech; Complete Time: 18:12 kb 07/22 17:32 Order name: IV Saline Lock - Large Bore; Complete Time: 17:33 kb 07/22 17:32 Order name: O2 Sat Monitoring; Complete Time: 17:33 kb 07/22 17:32 Order name: Vital Signs; Complete Time: 17:33 kb Administered Medications: 15:48 Drug: NS 0.9% IV 1000 ml IV at 1 bolus Per protocol; 1000 mL bolus Route: IV; Rate: 1 cp4 bolus; Site: right antecubital; 18:31 Follow up: Response: No adverse reaction; IV Status: Completed infusion cp4 21:15 Follow up: IV Status: Completed infusion; IV Intake: 1000ml tm6 15:48 Drug: Ondansetron IVP 4 mg IVP once; over 2 minutes Route: IVP; Site: right antecubital;cp4 18:31 Follow up: Response: No adverse reaction cp4 15:49 Drug: TORadol - Ketorolac IVP 15 mg IVP once Route: IVP; Site: right antecubital; cp4 18:31 Follow up: Response: No adverse reaction cp4 18:01 Drug: Rocephin IV 1 grams IV at calculated rate once; Given slow IV push per pharmacy cp4 instructions Route: IV; Rate: calculated rate; Site: right antecubital; 18:30 Follow up: Response: No adverse reaction; IV Status: Completed infusion cp4 18:21 Drug: NS 0.9% IV (30 ml/kg) 30 ml/kg IV at bolus once; Sepsis Protocol Route: IV; Rate: cp4 bolus; Site: right antecubital; 18:26 Drug: Potassium PO Effervescent Tablet 50 mEq PO once; dissolve in 4 ounces of water or cp4 juice Route: PO; Disposition Summary: 07/23/23 18:36 Hospitalization Ordered Notes: Hospitalization Status: Inpatient Admission cp Provider: Ray Mendiola cp Location: Telemetry/MedSurg (Inpatient) cp Condition: Stable cp Problem: new cp Symptoms: have improved cp Bed/Room Type: Standard cp Room Assignment: 404(07/23/23 20:09) wm Diagnosis - Pyelonephritis acute cp - Sepsis, unspecified organism cp - Hypokalemia cp Forms: - Medication Reconciliation Form cp - SBAR form cp - Leadership Thank You Letter cp Signatures: Dispatcher [employer] EDEricka Fernandez FNP-C CONVERTER OPERATOR-CkTomas Dominguez PA PA cp Leela Skaggs Christina cp4 Dilip Connor RN RN tl4 Ahmet Diaz RN tm6 Corrections: (The following items were deleted from the chart) 15:24 15:07 Stone Protocol+CT.RAD.BRZ ordered. EDVA EDVA 20:09 18:36 cp wm
[2023-07-23] MEDS: NA CHLORIDE 0.9% 1,000 ML IV SCH (20:00)
--- NOTE | 2023-07-23 20:10 | P.HP ---
Certification for Inpatient Patient admitted to: Inpatient With expected LOS: <2 Midnights Practitioner: I am a practitioner with admitting privileges, knowledge of patient current condition, hospital course, and medical plan of care. Services: Services provided to patient in accordance with Admission requirements found in Title 42 Section 412.3 of the Code of Federal Regulations Patient History Date of Service: 07/23/23 Reason for admission: Right flank pain History of Present Illness: 43-year-old male with no known past medical history presents emergency department with a complaint of right flank pain, nausea and vomiting, fever and chills of about 2 days duration. Patient denies any dysuria or increased urinary frequency. Urine analysis done in the emergency department shows UTI. CT abdomen and pelvis reported possible acute pyelonephritis. Patient given a dose of IV Rocephin and hospitalized for further management. Allergies No Known Allergies Allergy (Verified 04/16/18 17:29) Home Medications: levoFLOXacin [Levaquin*] 500 mg PO DAILY #14 tab 04/20/18 - Past Medical/Surgical History Diabetic: No -: None -: Tubal ligation - Family History Grandmother has diabetes. Mother and father have no medical problem History Unknown: Yes - Social History Smoking Status: Never smoker Alcohol use: No CD- Drugs: No Caffeine use: No Review of Systems Other: Patient denied any cough or shortness of breath. She denied any diarrhea or constipation. She denied any headache. Except as documented, all other systems reviewed and negative. Physical Examination - Physical Exam General: Alert, In no apparent distress, Oriented x3 HEENT: Mucous membr. moist/pink Neck: Supple, JVD not distended Respiratory: Clear to auscultation bilaterally, Normal air movement Cardiovascular: No edema, Normal pulses, Regular rate/rhythm, Normal S1 S2, No murmurs Capillary refill: <2 Seconds Gastrointestinal: Normal bowel sounds, Soft and benign, Non-distended, Tenderness Musculoskeletal: No swelling, No tenderness Integumentary: No rashes, No erythema, No cyanosis Neurological: Normal speech, Normal strength at 5/5 x4 extr, Cranial nerves 3-12 intact Lymphatics: No axilla or inguinal lymphadenopathy - Studies Laboratory Data (last 24 hrs) 07/23/23 07/23/23 07/23/23 17:45 15:22 15:22 WBC 12.50 H Hgb 12.2 Hct 36.4 Plt Count 258 PT 12.8 H INR 1.17 APTT 33.4 Sodium 133 L Potassium 3.1 L BUN 7 Creatinine 0.81 Glucose 158 H Total Bilirubin 0.3 AST 15 ALT 18 Alkaline Phosphatase 59 Assessment and Plan - Problems (Diagnosis) (1) Acute pyelonephritis Current Visit: Yes Status: Acute - Plan Admit patient to the medical floor Start IV cefepime Follow urine culture and blood cultures Analgesics as needed Antiemetics as needed Correct electrolytes as needed. Lovenox for DVT prophylaxis. - Advance Directives Does patient have a Living Will: No Does patient have a Durable POA for Healthcare: No
[2023-07-23] MEDS ORDERED: ACETAMINOPHEN 325 MG TABLET ONE (20:17)
[2023-07-23] MEDS: ONDANSETRON 4 MG/2 ML VIAL IV PRN (20:25)
[2023-07-23] MEDS: ACETAMINOPHEN 325 MG TABLET PO PRN (20:25)
[2023-07-23 20:33] LABS: Blood Morphology Comment NOT SEEN (NOT SEEN); Platelet Estimate ADEQ; White Blood Cell Scan OK (OK)
[2023-07-23 21:58] VITALS: BMI 25.1
[2023-07-23] MEDS: HYDROCODONE/APAP 5/325 MG TAB PO PRN (22:57)
[2023-07-24 06:44] LABS: Absolute Lymphocytes (CBC) 1.3 K/uL (0.7-4.9); Absolute Monocytes 1.6 K/uL (0.1-1.3); Absolute Neutrophil 14.4 K/uL (1.8-8.0); Basophils % 0.1 % (0-1.3); Hematocrit 34.2 % (36.0-45.0); Hemoglobin 11.8 g/dL (12.0-15.0); Lymphocytes % 7.6 % (15.3-44.8); MCH 32.5 pg (27.0-35.0); MCHC 34.4 g/dL (32.0-36.0); MCV 94.5 fL (80-100); MPV 9.2 fL (7.6-11.3); Monocytes % 9.4 % (3.3-12.3); Neutrophils % 82.9 % (41.7-73.7); Platelets 205 thou/uL (152-406); RBC Red Blood Cell Count 3.62 M/uL (3.86-4.86); Red Cell Distribution Width 14.2 % (12.1-15.2)
[2023-07-24 07:11] LABS: Anion Gap 9.1 mEq/L (5.0-15.0); Magnesium 1.9 mg/dL (1.6-2.4); Potassium 4.1 mEq/L (3.5-5.1)
[2023-07-24 07:16] LABS: Phosphorus 1.2 mg/dL (2.5-4.9)
[2023-07-24] MEDS ORDERED: SODIUM PHOSPHATE 30 MM in NA CHLORIDE 0.9% 500 ML IV SCH (09:00)
[2023-07-24] MEDS: CEFEPIME 1 GM in NA CHLORIDE 0.9% 100 ML IV SCH (09:00)
[2023-07-24] MEDS: POTASS/SODIUM PHOSPHATE 1 PKT POWD.PACK PO SCH (09:36)
[2023-07-24] MEDS: POTASSIUM PHOS IN 0.9 % NACL 15 MMOL/250 ML BAG IV ONE (09:37)
[2023-07-24] MEDS: ENOXAPARIN 40 MG/0.4 ML SQ SCH (09:37)
--- NOTE | 2023-07-24 10:22 | P.PN ---
Subjective Date of Service: 07/24/23 Chief Complaint: Right flank pain Pt is resting comfortably in bed. Pt reports right flank pain and headache. She is getting iv cefepime. No other complaints Review of Systems General: Unremarkable Eyes: Unremarkable ENT: Unremarkable Respiratory: Unremarkable Cardiovascular: Unremarkable Gastrointestinal: Unremarkable Genitourinary: Other (right flank pain), Unremarkable Musculoskeletal: Unremarkable Integumentary: Unremarkable Neurological: Unremarkable Lymphatics: Unremarkable Physical Examination - Vital Signs Temperature: 100 F Blood Pressure: 122/56 Pulse: 127 Respirations: 19 Pulse Ox (%): 95 - Physical Exam General: Alert, In no apparent distress, Oriented x3 HEENT: Atraumatic, Normocephalic, PERRLA Neck: Supple, 2+ carotid pulse no bruit Respiratory: Clear to auscultation bilaterally, Normal air movement Cardiovascular: No edema, Normal pulses, Regular rate/rhythm, Normal S1 S2 Capillary refill: <2 Seconds Gastrointestinal: Normal bowel sounds, Soft and benign, Non-distended Musculoskeletal: No clubbing, No swelling Integumentary: No rashes, No breakdown, No significant lesion Neurological: Normal gait, Normal speech, Normal strength at 5/5 x4 extr Lymphatics: No axilla or inguinal lymphadenopathy - Studies Laboratory Data (last 24 hrs) 07/23/23 07/23/23 07/23/23 17:45 15:22 15:22 WBC 12.50 H Hgb 12.2 Hct 36.4 Plt Count 258 PT 12.8 H INR 1.17 APTT 33.4 Sodium 133 L Potassium 3.1 L BUN 7 Creatinine 0.81 Glucose 158 H Total Bilirubin 0.3 AST 15 ALT 18 Alkaline Phosphatase 59 Assessment And Plan - Plan Sepsis 2/2 acute pyelonephritis: Will continue cefepime and follow up blood cx. CT abd shows acute pyelonephritis. She complains of right flank pain. Hyponatremia: Na is 135. Will continue gentle hydration UTI: continue cefepime and f/u urine cx. Hypophosphotemia: Phos is 1.2. Will replete and monitor. DVT ppx: lovenox Code: full
--- NOTE | 2023-07-24 13:21 | RAD REPORT ---
EXAM DESCRIPTION: CT ABDOMEN AND PELVIS WITH CONTRAST Abdomen Pelvis W Contrast CLINICAL HISTORY: ABD PAIN TECHNIQUE: CT abdomen and pelvis was performed, following the administration of contrast, as per [facility]. Axial, sagittal, and coronal reconstructions were obtained. IV CONTRAST: Yes ORAL CONTRAST: Not administered, limiting the sensitivity of this exam for evaluation of bowel, retro peritoneum, and intraabdominal fluid collections. RADIATION DOSE REDUCTION: his exam was performed according to the departmental dose-optimization prog rolf which includes automated exposure control, adjustment of the mA and/or kV according to patient si ze and/or use of iterative reconstruction technique. Total DLP: 733. CTDI: 12.9. COMPARISON: Abdominal pelvic CT April 03, 2023 report only. Images are not available. FINDINGS: LOWER CHEST: Minimal basilar atelectasis. No consolidation or effusion LIVER: Normal enhancement. Small central cyst. No routine imaging follow-up recommended. No significant foca l lesion GALLBLADDER: No radiopaque calculus BILE DUCTS: No biliary dilatation identified. PANCREAS: No pathologic process. SPLEEN: No pathologic process. ADRENALS: No pathologic process. KIDNEYS AND URETERS: Right kidney: Heterogeneous enhancement over the lower pole compatible with pyelonephritis. No abscess noted. Mild right hydronephrosis. This is likely related to UTI. No obstructing calculus Left kidney demonstrates normal enhancement. No calculus. No hydronephrosis URINARY BLADDER: Bladder demonstrates no wall thickening or surrounding inflammatory change GASTROINTESTINAL TRACT: No bowel obstruction Low volume colonic stool No significant colonic diverticulosis. No diverticulitis No small bowel wall thickening or pneumatosis APPENDIX: No inflammatory changes in region of appendix. The appendix is not identified LYMPH NODES: No lymphadenopathy. PERITONEUM/MESENTERY: No free air, significant free fluid, mass or fluid collection. VESSELS: No vascular abnormality. ADDITIONAL RETROPERITONEAL FINDINGS: None. REPRODUCTIVE ORGANS: he uterus is retroflexed. No adnexal mass ABDOMINAL AND PELVIC GE: No acute abnormality MUSCULOSKELETAL: Regional skeletal system demonstrates no acute abnormality ADDITIONAL FINDINGS: None. IMPRESSION: 1. Heterogeneous enhancement lower pole right kidney compatible with pyelonephritis. N o abscess. Mild right hydronephrosis likely related to UTI. No obstructing calculus. 2. No free air. No free fluid. No bowel obstruction. 3. No diverticulitis. No right lower quadrant inflammatory change. Standardized Report: [id number]. Electronically signed by: Rodrigo Guerrero MD 07/23/2023 05:23 PM CDT Due to temporary technical issues with the PACS/Fluency reporting system, reports are being signed by the in house radiologist without review as a courtesy to ensure prompt reporting. The interpreting r adiologist is fully responsible for the content of the report.
--- NOTE | 2023-07-24 14:15 | EKG ---
Test Date: 2023-07-23 Test Time: 18:02:23 Web Marketing Analyst: JOVITA MEASUREMENT RESULTS: Intervals: Rate: 130 [place]: 134 QRSD: 74 QT: 294 QTc: 432 [place]: P: 61 [place]: 134 QRS: 37 T: 8 INTERPRETIVE STATEMENTS: Sinus tachycardia Nonspecific ST and T wave abnormality Abnormal ECG No previous ECG available for comparison Electronically Signed On 07-24-23 14:13:36 CDT by Jamie Cain
[2023-07-24] MEDS: CEFEPIME 2 GM in NA CHLORIDE 0.9% 100 ML IV SCH (15:24)
[2023-07-24] MEDS: MORPHINE 2 MG/ML SYR IV PRN (16:15)
[2023-07-24] MEDS: ONDANSETRON 4 MG/2 ML VIAL ONE (18:27)
[2023-07-24] MEDS: BISACODYL 10 MG RECTAL SUPP PR ONE (20:51)
[2023-07-25 07:11] LABS: Absolute Lymphocytes (CBC) 1.5 K/uL (0.7-4.9); Absolute Monocytes 1.4 K/uL (0.1-1.3); Basophils % 0.2 % (0-1.3); Eosinophils % 0.1 % (0-4.4); Hematocrit 31.2 % (36.0-45.0); Hemoglobin 10.6 g/dL (12.0-15.0); Lymphocytes % 9.4 % (15.3-44.8); MCH 31.9 pg (27.0-35.0); MCHC 34.1 g/dL (32.0-36.0); MCV 93.4 fL (80-100); MPV 8.6 fL (7.6-11.3); Monocytes % 8.9 % (3.3-12.3); Neutrophils % 81.4 % (41.7-73.7); Platelets 211 thou/uL (152-406); RBC Red Blood Cell Count 3.34 M/uL (3.86-4.86); Red Cell Distribution Width 14.2 % (12.1-15.2)
[2023-07-25 07:21] LABS: Anion Gap 8.3 mEq/L (5.0-15.0); Potassium 3.3 mEq/L (3.5-5.1)
[2023-07-25 07:24] LABS: Phosphorus 1.3 mg/dL (2.5-4.9)
[2023-07-25] MEDS ORDERED: POTASSIUM CL SA 10 MEQ TAB PO SCH (08:00)
[2023-07-25] MEDS: POTASSIUM PHOS 30 MM in NA CHLORIDE 0.9% 500 ML IV ONE (08:21)
--- NOTE | 2023-07-25 10:26 | P.PN ---
Subjective Date of Service: 07/25/23 Chief Complaint: Right flank pain Pt is resting comfortably in bed. Pt reports that the right flank pain is improving. No fever or headache overnight. She is getting iv cefepime. No other complaints Review of Systems General: Unremarkable Eyes: Unremarkable ENT: Unremarkable Respiratory: Unremarkable Cardiovascular: Unremarkable Gastrointestinal: Unremarkable Genitourinary: Unremarkable Musculoskeletal: Unremarkable Integumentary: Unremarkable Neurological: Unremarkable Lymphatics: Unremarkable Physical Examination - Vital Signs Temperature: 98.6 F Blood Pressure: 107/57 Pulse: 85 Respirations: 14 Pulse Ox (%): 100 - Physical Exam General: Alert, In no apparent distress, Oriented x3 HEENT: Atraumatic, Normocephalic, PERRLA Neck: Supple, 2+ carotid pulse no bruit Respiratory: Clear to auscultation bilaterally, Normal air movement, Diminished Cardiovascular: No edema, Normal pulses, Regular rate/rhythm, Normal S1 S2 Capillary refill: <2 Seconds Gastrointestinal: Normal bowel sounds, Soft and benign, Non-distended, Tenderness (right flank) Musculoskeletal: No clubbing, No swelling Integumentary: No rashes, No breakdown Neurological: Normal gait, Normal speech, Normal strength at 5/5 x4 extr, Sensation intact Lymphatics: No axilla or inguinal lymphadenopathy - Studies Microbiology Data (last 24 hrs): 07/23/23 15:22 Clean Catch Urine [place] Count - Final >100,000 CFU/ML. 07/23/23 15:22 Clean Catch Urine - Final Escherichia Coli 07/23/23 17:45 Blood - Blood Blood Culture Gram Stain - Final Assessment And Plan - Plan Sepsis 2/2 acute pyelonephritis: Will continue cefepime and follow up blood cx. CT abd shows acute pyelonephritis. The right flank pain is improving. No fever. Hyponatremia: Na is 133 <- 135. Will continue gentle hydration Hypokalemia; K is 3.3. Will replete with Kphos and monitor. Will check mag level (1.9) UTI: continue cefepime and f/u urine cx. Hypophosphotemia: Phos is 1.3<- 1.2. Will replete and monitor. DVT ppx: lovenox Code: full
[2023-07-26] MEDS: CEFTRIAXONE 1,000 MG in NA CHLORIDE 0.9% 50 ML IVPB SCH (10:31)
[2023-07-26] MEDS: CIPROFLOXACIN 400mg IV 400 MG/200 ML BAG IV SCH (15:00)
--- NOTE | 2023-07-26 17:59 | P.PN ---
Subjective Date of Service: 07/26/23 Chief Complaint: Right flank pain No new complaint except intermittent pain. No fever over the past 48 hours. WBC is trending down. Physical Examination - Vital Signs Temperature: 97.0 F Blood Pressure: 109/57 Pulse: 78 Respirations: 18 Pulse Ox (%): 100 - Physical Exam General: Alert, In no apparent distress, Oriented x3 HEENT: Mucous membr. moist/pink Neck: Supple, JVD not distended Respiratory: Clear to auscultation bilaterally, Normal air movement Cardiovascular: No edema, Regular rate/rhythm, Normal S1 S2 Gastrointestinal: Normal bowel sounds, Soft and benign, Non-distended, No tenderness Musculoskeletal: No swelling Integumentary: No rashes, No cyanosis Neurological: Normal strength at 5/5 x4 extr - Studies Microbiology Data (last 24 hrs): 07/23/23 17:45 Blood - Blood Aerobic Blood Culture - Final Escherichia Coli 07/23/23 17:45 Blood - Blood Blood Culture Gram Stain - Final 07/23/23 17:45 Blood - Blood Anaerobic Blood Culture - Final 07/23/23 17:45 Blood - Blood Gram Stain - Final Assessment And Plan - Current Problems (Diagnosis) (1) Acute pyelonephritis Current Visit: Yes Status: Acute (2) E coli bacteremia Current Visit: Yes Status: Acute (3) E. coli UTI Current Visit: Yes Status: Acute - Plan Infectious disease consulted. IV cefepime transitioned to IV ciprofloxacin per infectious disease. Analgesics as needed Antiemetics as needed Outpatient antibiotics per infectious disease. DVT prophylaxis: Lovenox
[2023-07-26] MEDS: MAGNESIUM CITRATE 300 ML BOT PO ONE (18:51)
[2023-07-26] MEDS: ONDANSETRON 4 MG/2 ML VIAL ONE (22:20)
[2023-07-27 07:17] LABS: Absolute Lymphocytes (CBC) 2.1 K/uL (0.7-4.9); Absolute Monocytes 0.6 K/uL (0.1-1.3); Absolute Neutrophil 4.6 K/uL (1.8-8.0); Basophils % 0.3 % (0-1.3); Eosinophils % 0.5 % (0-4.4); Hematocrit 31.8 % (36.0-45.0); Lymphocytes % 28.7 % (15.3-44.8); MCH 32.1 pg (27.0-35.0); MCHC 34.6 g/dL (32.0-36.0); MCV 92.8 fL (80-100); MPV 8.2 fL (7.6-11.3); Neutrophils % 62.5 % (41.7-73.7); Nucleated Red Blood Cells % 0.2 % (0-0); Platelets 302 thou/uL (152-406); RBC Red Blood Cell Count 3.43 M/uL (3.86-4.86); Red Cell Distribution Width 14.5 % (12.1-15.2)
[2023-07-27 07:27] LABS: Anion Gap 7.1 mEq/L (5.0-15.0); Potassium 4.1 mEq/L (3.5-5.1)
--- NOTE | 2023-07-27 08:59 | P.CNS ---
Date of Consult: 07/27/23 Reason for Consult: E.coli Bacteremia Chief Complaint: Right flank pain Allergies No Known Allergies Allergy (Verified 07/23/23 21:45) Home medications list reviewed: Yes Home Medications: Ibuprofen 400 mg PO DAILY PRN 07/23/23 - Past Medical/Surgical History Diabetic: No -: None -: Tubal ligation - Family History Grandmother has diabetes. Mother and father have no medical problem History Unknown: Yes - Social History Alcohol use: No CD- Drugs: No Caffeine use: No Place of Residence: Home Physical Examination Temp Pulse Resp BP Pulse Ox 97.0 F 70 16 92/51 L 99 07/27/23 08:00 07/27/23 08:00 07/27/23 08:00 07/27/23 08:00 07/27/23 08:00 General: Alert, In no apparent distress, Oriented x3 HEENT: Atraumatic, Normocephalic Respiratory: Clear to auscultation bilaterally, Normal air movement Cardiovascular: No edema, Regular rate/rhythm Gastrointestinal: Normal bowel sounds, Soft and benign Integumentary: No rashes Laboratory Data - Reviewed Microbiology Data - Reviewed Imagings Data: - Reviewed Conclusions/Impression: E.coli Bacteremia secondary to Acute Pyelonephritis - Urine culture: Escherichia coli - Blood cultures: E.coli and coagulase-negative staph - Previously on Cefepime (07/23-07/25) - Currently on Ciprofloxacin IV - Leukocytosis resolved - Afebrile >48 hours Recommendations - Pyelonephritis, Bacteremia: Previously on Cefepime 07/23-07/25. --> Recommend continuing with Ciprofloxacin for an additional 7 days (07/26 - 08/02) -Cultures with puentes-sensitive E.coli. Currently on Ciprofloxacin IV, switch to PO upon discharge to complete remainder of antibiotic course. - Follow up with PCP in 1-2 weeks Case discussed with Nandini Cabrera
[2023-07-27] MEDS: MAGNESIUM CITRATE 300 ML BOT PO SCH (09:13)
[2023-07-27 10:11] VITALS: O2SAT 99
[2023-07-27 12:27] VITALS: BP 100/56; TEMP 97.2
--- NOTE | 2023-07-27 14:39 | P.DS ---
Admission Date: 07/23/23 Discharge Date: 07/27/23 Disposition: ROUTINE DISCHARGE Discharge Condition: FAIR Reason for Admission: Right flank pain - Problems (1) Acute pyelonephritis Current Visit: Yes Status: Acute (2) E coli bacteremia Current Visit: Yes Status: Acute (3) E. coli UTI Current Visit: Yes Status: Acute Brief History of Present Illness: 43-year-old male with no known past medical history presents emergency department with a complaint of right flank pain, nausea and vomiting, fever and chills of about 2 days duration. Patient denies any dysuria or increased urinary frequency. Urine analysis done in the emergency department shows UTI. CT abdomen and pelvis reported possible acute pyelonephritis. Patient given a dose of IV Rocephin and hospitalized for further management. Hospital Course: Patient was admitted to the medical floor and treated aggressively with IV cefepime. Urine culture and blood cultures grew pansensitive E. coli. Patient has significant leukocytosis which resolved with treatment. She had constipation which was managed with laxatives including mag citrate. Patient was seen in consultation by infectious disease who assisted with management. Patient symptoms are resolved. She is discharged with oral ciprofloxacin to complete at least 7 days of treatment. Vital Signs/Physical Exam: Temp Pulse Resp BP Pulse Ox 97.2 F 73 16 100/56 L 99 07/27/23 12:00 07/27/23 12:00 07/27/23 12:00 07/27/23 12:00 07/27/23 12:00 General: Alert, In no apparent distress, Oriented x3 HEENT: Mucous membr. moist/pink Neck: Supple, JVD not distended Respiratory: Clear to auscultation bilaterally, Normal air movement Cardiovascular: No edema, Regular rate/rhythm, Normal S1 S2 Gastrointestinal: Normal bowel sounds, Soft and benign, Non-distended, No ten derness Musculoskeletal: No swelling Integumentary: No rashes, No cyanosis Neurological: Normal strength at 5/5 x4 extr Laboratory Data at Discharge: WBC 7.40 thou/uL (4.3-10.9) 07/27/23 06:00 Hgb 11.0 g/dL (12.0-15.0) L 07/27/23 06:00 Hct 31.8 % (36.0-45.0) L 07/27/23 06:00 Plt Count 302 thou/uL (152-406) 07/27/23 06:00 PT 12.8 SECONDS (9.5-12.5) H 07/23/23 17:45 INR 1.17 07/23/23 17:45 APTT 33.4 SECONDS (24.3-36.9) 07/23/23 17:45 Sodium 139 mEq/L (136-145) 07/27/23 06:00 Potassium 4.1 mEq/L (3.5-5.1) 07/27/23 06:00 BUN 5 mg/dL (7-18) L 07/27/23 06:00 Creatinine 0.39 mg/dL (0.55-1.02) L 07/27/23 06:00 Glucose 91 mg/dL (74-106) 07/27/23 06:00 Phosphorus 1.3 mg/dL (2.5-4.9) L* 07/25/23 06:48 Magnesium 1.9 mg/dL (1.6-2.4) 07/24/23 05:43 Total Bilirubin 0.3 mg/dL (0.2-1.0) 07/23/23 15:22 AST 15 U/L (15-37) 07/23/23 15:22 ALT 18 U/L (13-56) 07/23/23 15:22 Alkaline Phosphatase 59 U/L (45-117) 07/23/23 15:22 Home Medications: Ibuprofen 400 mg PO DAILY PRN 07/23/23 Ciprofloxacin HCl [Cipro] 500 mg PO BID #8 tab 07/27/23 New Medications: Ciprofloxacin HCl [Cipro] 500 mg PO BID #8 tab Diet: Regular Activity: Ad parul Followup: NONE,NONE [Primary Care Provider] - 1-2 Weeks Time spent managing pt's care (in minutes): 33
== END 2023-07-27 15:56 | disposition home or self-care (01) | DRG 872 ==
LOC: ER 14:12 → ERHOLD 19:56 → 4TH 20:41
PROVIDERS: ADMIT Internal Medicine; ATTEND Internal Medicine
DX: A41.51 Sepsis due to Escherichia coli [E. coli] (principal); N10 Acute pyelonephritis; E87.1 Hypo-osmolality and hyponatremia; E87.6 Hypokalemia; E83.39 Other disorders of phosphorus metabolism; Z98.51 Tubal ligation status; Z79.899 Other long term (current) drug therapy
CPT/HCPCS: 36415; 74177; 80048; 80053; 81001; 81025; 83605; 83735; 84100; 84132; 85025; 85610; 85730; 87040; 87077; 87086; 87088; 87186; 87205; 93005; 96361; 96365; 96375; 99285; J0692; J0696; J0744; J1650; J2270; J2405; J7030; J7040; Q9967

== ENCOUNTER 2025-02-05 19:21 | Emergency (ER) | payer SELFPAY, OTHER ==
--- OUTSIDE RECORDS SUMMARY | 2025-02-05 19:24 | XMS REPORT | Continuity of Care Document ---
Author Name Unknown Address [address] [place] [address] [facility] Address [address] [place] [id number] Care Team Providers Care Hospitality Housekeeper Name Role Phone Unavailable Unavailable Unavailable
[2025-02-05] MEDS ORDERED: ACETAMINOPHEN 500 MG TAB ONE (20:28)
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
[2025-02-05 23:33] VITALS: BP 115/79; TEMP 98.5; O2SAT 100
== END 2025-02-05 23:02 | disposition home or self-care (01) ==
LOC: ER 19:21
DX: M25.512 Pain in left shoulder (principal); V59.40XA Driver of pick-up truck or van injured in collision with unspecified motor vehicles in traffic accident, initial encounter
CPT/HCPCS: 99283